=== PATIENT | male | born 1935 | race Hispanic/Latino ===

== ENCOUNTER 2019-12-16 15:49 | Inpatient (IN) | payer MEDICARE ==
[~2019-12-16] VITALS: Ht 170.2 cm; Wt 141.5 kg
[~2019-12-16 15:49] MED LIST: AMOX TR-K CLV1 EAC2; ASPIRIN EC81 MG PO; B-121000 MC2 PO; CIPROFLOXACIN250 MG PO; COLACE100 MG PO; FLINTSTONES CO1 EACH PO; FUROSEMIDE40 MG PO; LEVOFLOXACIN750 MG; LISINOPRIL20 MG PO; MAGNESIUM500 MG PO; METOLAZONE5 MG PO; POTASSIUM CHLO20 ME1 PO; TERAZOSIN HCL1 MG PO; WARFARIN SODIUM3 MG PO
[2019-12-16] MEDS ORDERED: PANTOPRAZOLE 40 MG 10ML VIAL IV STA (16:02)
[2019-12-16] MEDS ORDERED: SODIUM CHLORIDE 0.9% 1000ML 1,000 ML IV STA (16:02)
[2019-12-16 16:23] LABS: BASOPHILS # (AUTO) 0.1 (0.0-0.1); BASOPHILS % 0.9 % (0.0-1.0); EOSINOPHILS # (AUTO) 0.2 (0.0-0.4); EOSINOPHILS % 2.2 % (0.0-6.0); HEMATOCRIT 33.6 % (38.2-49.6); HEMOGLOBIN 11.1 g/dL (14.0-18.0); LYMPHOCYTES # (AUTO) 3.1 (1.0-3.2); LYMPHOCYTES % 34.1 % (18.0-39.1); MEAN CORPUSCULAR HEMOGLOBIN 33.3 pg (28-32); MEAN CORPUSCULAR VOLUME 100.9 fL (81-99); MONOCYTES # (AUTO) 0.9 (0.2-0.8); MONOCYTES % 10.3 % (4.4-11.3); NEUTROPHILS # (AUTO) 4.7 (2.1-6.9); NEUTROPHILS % 52.2 % (38.7-80.0); PLATELET COUNT 189 x10e3/uL (140-360); RED BLOOD COUNT 3.33 x10e6/uL (4.3-5.7); RED CELL DISTRIBUTION WIDTH 14.6 % (11.7-14.4)
[2019-12-16 16:33] LABS: INR 1.16; PROTHROMBIN TIME 15.6 seconds (11.9-14.5)
[2019-12-16 16:34] LABS: PARTIAL THROMBOPLASTIN TIME 31.9 seconds (23.8-35.5)
[2019-12-16 16:43] LABS: ALBUMIN 2.1 g/dL (3.5-5.0); ALBUMIN/GLOBULIN RATIO 0.6 (0.8-2.0); ANION GAP 12.3 mmol/L (8-16); CALCIUM 8.1 mg/dL (8.4-10.2); CREATININE, SERUM 1.22 mg/dL (0.72-1.25); POTASSIUM 3.3 mmol/L (3.5-5.1)
[2019-12-16 16:50] LABS: CREATINE KINASE MB 2.3 ng/mL (0-5.0)
--- NOTE | 2019-12-16 16:51 | Diagnostic Imaging Report ---
EXAM: CHEST SINGLE (PORTABLE) DATE: 12/16/2019 4:02 PM INDICATION: Colon cancer COMPARISON: 09/02/2019 FINDINGS: There are postsurgical changes from prior median sternotomy. The trachea is midline. There are patchy left greater than right bibasilar opacities which are stable from the prior examination and may reflect atelectasis/scarring. There is no evidence for large focal consolidation or pneumothorax. There is blunting of the costophrenic angles and trace effusions may be possible. No large volume pleural effusion is present. The cardiac silhouette remains prominent. Atherosclerotic calcifications are noted within the thoracic aorta. Mediastinal contours are unremarkable. No acute osseous abnormality is identified. IMPRESSION: Increased left greater than right-sided basilar opacities which may reflect atelectasis and/or trace effusion. Signed by: Dr. Kenton Lee MD on 12/16/2019 4:48 PM
--- NOTE | 2019-12-16 18:21 | NUR ---
Pt passed approx 200ml clotted blood from rectum.
--- NOTE | 2019-12-16 18:59 | NUR ---
patient pending arrival to the floor at shift change, COMMERCIAL TITLE EXAMINER DERRICK GAVE REPORT VIA TELEPHONE, PATIENT C/O GENERALIZED WEAKNESS, GI BLEED, CURRENT HBG 11.1, TYPE AND SCREEN COMPLETED, HX OF COLON CA, NO TX PLAN [id number]
--- NOTE | 2019-12-16 18:59 | NUR ---
Nursing report given to Ada PATEL on Med surg 1.
[2019-12-16 19:22] VITALS: BP 103/50
[2019-12-16 19:44] VITALS: BP 103/50
--- NOTE | 2019-12-16 20:05 | History and Physical ---
CHIEF COMPLAINT: An 84-year-old gentleman with a history of congestive heart failure, hypertension, and atrial fibrillation with current rectal bleeding. HISTORY OF PRESENT ILLNESS: This is Mr. Walter Adhikari with a history of congestive heart failure, history of CABG, history of CAD, was in usual state of health until the day of admission the patient passed two large clots and rectal bleeding. The patient has been seen by GI and also by Dr. Gore for his atrial fibrillation. Does take anticoagulation. The patient admitted to the hospital for acute GI bleed. PAST MEDICAL HISTORY: History of congestive heart failure, history of hypertension, history of hyperlipidemia, history of long-term anticoagulation, history of BPH, history of iron deficiency anemia. MEDICATIONS: He takes at home, aspirin 81 mg, docusate 100 mg, furosemide 40 mg twice a day, lisinopril 20 mg daily, magnesium 500 mg daily, metolazone 5 mg daily, multivitamins and iron daily, potassium chloride 20 mEq daily, terazosin 2 mg capsules once a day, and warfarin 3 mg daily. PAST SURGICAL HISTORY: History of 5-vessel coronary artery bypass in 2002. The patient had ear surgery, back surgery in 1977. Also, history of DVT with PICC line. ALLERGIES: INCLUDE CLINDAMYCIN AND LEVAQUIN. PHYSICAL EXAMINATION: VITAL SIGNS: Temperature of 98.2, pulse of 69, respirations of 20, blood pressure is 101/73, and pulse oximetry of 99%. GENERAL: The patient is obese, alert and oriented x3. HEENT: Normocephalic, atraumatic. The patient's thorax has a midline sternotomy. NECK: Large. HEART: S1, S2. Irregular. ABDOMEN: Relatively nontender, but protuberant. Has a big pannus. EXTREMITIES: 4+ edema. LABORATORY DATA: The patient's white count is 9.04, hemoglobin is 11.1, hematocrit of 33.6, and platelet count was 189. Chemistry shows sodium 141, potassium 3.3, BUN of 25, creatinine of 1.22, glucose 165, calcium is 8.1. Alkaline phosphatase is 215, AST of 54. TSH is 2.98. First set of troponin was negative. The patient is O positive. INR is 1.16, PTT 31.9. IMAGING STUDIES: Chest x-ray shows increased left greater than right bibasilar opacities, which may reflect atelectasis and/or trace effusion. ASSESSMENT: Mr. Walter Adhikari with history of. 1. Acute rectal bleed and long-term history of anticoagulation and consult with Dr. Ivan Velázquez has been done. 2. Atrial fibrillation with rapid ventricular response. Dr. Gore has been consulted and also warfarin has been on hold. 3. History of hypertension, history of CAD, and history of hyperlipidemia. Currently, the blood pressure is trending low. We will hold back on his antihypertensive medications. IV fluid has been started. The patient has been started on IV Protonix drip, pantoprazole IV x1 has been given. I will keep the patient n.p.o. at this time. Continue doing serial H and H. 4. We will continue to monitor the patient. Consult with both Cardiology and GI has been done. 5. Further recommendation per clinical course. We will follow the patient along with consultants. MD ANDREW Varma/CHLOÉ /[id number]
[2019-12-16 20:59] LABS: BASOPHILS % 0.4 % (0.0-1.0); EOSINOPHILS % 0.2 % (0.0-6.0); HEMATOCRIT 28.9 % (38.2-49.6); HEMOGLOBIN 9.3 g/dL (14.0-18.0); LYMPHOCYTES % 12.4 % (18.0-39.1); MEAN CORPUSCULAR HEMOGLOBIN 33.1 pg (28-32); MEAN CORPUSCULAR HGB CONC 32.2 g/dL (31-35); MEAN CORPUSCULAR VOLUME 102.8 fL (81-99); MONOCYTES # (AUTO) 0.5 (0.2-0.8); MONOCYTES % 6.1 % (4.4-11.3); NEUTROPHILS # (AUTO) 6.5 (2.1-6.9); NEUTROPHILS % 80.4 % (38.7-80.0); PLATELET COUNT 167 x10e3/uL (140-360); RED BLOOD COUNT 2.81 x10e6/uL (4.3-5.7); RED CELL DISTRIBUTION WIDTH 14.6 % (11.7-14.4)
[2019-12-16] MEDS ORDERED: PANTOPRAZOLE 40 MG 10ML VIAL IV SCH (21:00)
--- NOTE | 2019-12-16 21:05 | NUR ---
MD MCNEILL CALLED TO GET UPDATE ON PATIENT STATUS, HE WAS CALLED FOR CONSULT, INFORMED THAT PATIENT IS RESTING W/O DISTRESS, HYPOTENSIVE WITH SBP 102, NS@[id number], NEXT CBC ORDERED FOR 0000 REDRAW q6h, MD MCNEILL ORDERED TO CONTINUE MONITORING PATIENT CONDITION, NOTIFY HIM IF CHANGE IN CONDITION, UPGRADE PATIENT TO IMCU IF CONDITION WORSENS, START PATIENT ON CLEAR LIQUID DIET
[2019-12-16] MEDS ORDERED: AZELASTINE137 MCG/0. (21:13)
[2019-12-16] MEDS ORDERED: NYSTATIN100000 UNI TOP (21:15)
--- NOTE | 2019-12-16 21:57 | NUR ---
INFORMED MY GEOTHERMAL SYSTEM INSTALLER THAT PATIENT HGB DROPPED FROM 11.1 TO 9, NEXT CBC DUE AT 2AM, PT HAD ONE EPISODE OF RECTAL BLEEDING, LARGE AMOUNT OF DARK RED BLOOD WITH MULTIPLE BLOOD CLOTS SEEN NOTED, LOOKS LIKE DARK GRAPE JELLY, CARE GIVEN, DENIES PAIN OR DISCOMFORT AT THIS TIME, PATIENT PLACED ON TELEMETRY WITH CONTINOUS PULSE OXIMETRY, CLINICAL RN LIAISON NOTIFIED OF POSSIBLE PENDING UPGRADE WITH RESULTS OF NEXT LABS AT 0200
--- NOTE | 2019-12-16 23:00 | NUR ---
PATIENT TRANSFERRED TO ICU VIA BED, REPORT GIVEN IN PERSON TO BALL POINT SPLITTER DHARMESH WHEN SHE CAME ON FLOOR TO COMPLETE ASSESSMENT ON PATIENT, UPDATED ON MD [facility] PLAN OF CARE, PATIENT AWAKE ALERT, DURING TRANSFER, C/O ABDOMINAL PAIN THAT IS RELIEVED WITH BOWEL MOVEMENT, PATIENT GIVEN CARE PRIOR TO TRANSFER, PT PASSED APPROX 300ML CLOTTED BLOOD FROM RECTUM, CONSENT FOR BLOOD PRODUCT IN CHART
[2019-12-16 23:15] VITALS: BP 106/51
--- NOTE | 2019-12-16 23:15 | NUR ---
Report received from Ada Hi RN. Pt received to ICU room 196. Pt is AAOx3 on room air with no signs of distress noted. Pt reports no pain or discomfort at this time. Bed in lowest and locked position, call light in reach of the pt. Pt instructed to call for assistance and to notify staff when he needs to have a BM or urination assistance.
[2019-12-16] MEDS ORDERED: SODIUM CHLORIDE 0.9% 1000ML 1,000 ML ONE (23:41)
[2019-12-17] VITALS (11 sets, daily range): BP systolic 92–119; BP diastolic 47–92
[2019-12-17 05:34] LABS: BASOPHILS # (AUTO) 0.1 (0.0-0.1); BASOPHILS % 0.4 % (0.0-1.0); EOSINOPHILS % 0.3 % (0.0-6.0); HEMATOCRIT 23.2 % (38.2-49.6); HEMOGLOBIN 7.7 g/dL (14.0-18.0); LYMPHOCYTES # (AUTO) 1.8 (1.0-3.2); LYMPHOCYTES % 15.2 % (18.0-39.1); MEAN CORPUSCULAR HEMOGLOBIN 34.1 pg (28-32); MEAN CORPUSCULAR HGB CONC 33.2 g/dL (31-35); MEAN CORPUSCULAR VOLUME 102.7 fL (81-99); MONOCYTES # (AUTO) 0.9 (0.2-0.8); MONOCYTES % 7.2 % (4.4-11.3); NEUTROPHILS # (AUTO) 9.1 (2.1-6.9); NEUTROPHILS % 76.3 % (38.7-80.0); PLATELET COUNT 170 x10e3/uL (140-360); RED BLOOD COUNT 2.26 x10e6/uL (4.3-5.7); RED CELL DISTRIBUTION WIDTH 14.7 % (11.7-14.4)
[2019-12-17 05:47] LABS: ALBUMIN 1.6 g/dL (3.5-5.0); ALBUMIN/GLOBULIN RATIO 0.6 (0.8-2.0); ANION GAP 12.9 mmol/L (8-16); CALCIUM 7.5 mg/dL (8.4-10.2); CREATININE, SERUM 1.66 mg/dL (0.72-1.25); POTASSIUM 3.9 mmol/L (3.5-5.1)
--- NOTE | 2019-12-17 06:52 | NUR ---
Pt requesting pain medication for chronic back and hip pain. Dr. Nieves paged at this time. Currently awaiting his return call.
--- NOTE | 2019-12-17 07:51 | Progress Note ---
DATE: Progress note. SUBJECTIVE: An 84-year-old gentleman who was admitted to the hospital for a GI bleed. Still continues to have melena and melenic stool and also bright rectal bleed per rectum. The patient is weak, continues to have some back pain. Hemoglobin has dropped to 7.2. The patient has no chest pain. No shortness of breath. Still in atrial fibrillation with no RVR. OBJECTIVE: VITAL SIGNS: The patient's blood pressure is stable. CVS: S1 and S2. Regular. ABDOMEN: Tender in the lower quadrant and also in the right upper quadrant. EXTREMITIES: No clubbing, no cyanosis, 3+ edema. ASSESSMENT: The patient with: 1. Acute GI bleed. 2. Low back pain. 3. History of hypertension. 4. Atrial fibrillation. 5. Hyperlipidemia. PLAN: Has been consulted to see, GI has been consulted. The patient will be put on IV Protonix drip because of melenic stools. Echocardiogram has been ordered. Transfusion for 2 units of PRBC has been ordered. Possible need of EGD and colonoscopy will be discussed with GI. Monitor hematocrit and continue to keep in ICU. Fluid resuscitation and we will recommend also an echocardiogram. Further recommendations per clinical course. We will continue to monitor the patient and then also on [employer] payroll consultant's reports. MD ANDREW Varma/MODL /[id number]
[2019-12-17 09:09] LABS: HEMATOCRIT 20.7 % (38.2-49.6); HEMOGLOBIN 6.7 g/dL (14.0-18.0)
[2019-12-17] MEDS ORDERED: SODIUM CHLORIDE 0.9% 250ML 250 ML ONE (09:19)
[2019-12-17] MEDS: PANTOPRAZOLE INJ 40 MG in SODIUM CHLORIDE 0.9% 50ML 50 ML IV SCH ×4 (10:36→23:40)
--- NOTE | 2019-12-17 10:51 | NUR ---
GASTROENTEROLOGY CONSULTATION REASON FOR CONSULT: rectal bleeding CHIEF COMPLAINT: Patient is a 84-year-old gentleman with a history of congestive heart failure, hypertension, and atrial fibrillation with current rectal bleeding who presented with passing of two large clots and rectal bleeding. Patient states he has been seen by Dr. Velázquez in the past, but did not have an EGD or colonoscopy in the past. He has taken many anticoagulants in the past, however currently is on baby Aspirin.He denies any abd pain, hematemesis, nausea/vomiting, or dysphagia. He denies any cp or sob. Patient is currently bleeding and has hgb of 6.7. He denies any history of gastric ulcers or hemorrhoids. ROS: GENERAL: denies fevers, chills HEENT: denies ear pain, discharge HEART: denies any cp or palpitations LUNGS: edema, denies any sob GI: nontender, denies any abd pain, n/v EXTREMITIES: 2+ edema. NEURO: denies any seizures or headaches PAST MEDICAL HISTORY: History of congestive heart failure, history of hypertension, history of hyperlipidemia, history of long-term anticoagulation, history of BPH, history of iron deficiency anemia. MEDICATIONS: aspirin 81 mg, docusate 100 mg, furosemide 40 mg twice a day, lisinopril 20 mg daily, magnesium 500 mg daily, metolazone 5 mg daily, multivitamins and iron daily, potassium chloride 20 mEq daily, terazosin 2 mg capsules once a day, and warfarin 3 mg daily. PAST SURGICAL HISTORY: History of 5-vessel coronary artery bypass in 2002. ear surgery, back surgery in 1977. ALLERGIES: INCLUDE CLINDAMYCIN AND LEVAQUIN. PHYSICAL EXAMINATION: VITAL SIGNS: See chart GENERAL: The patient is obese, alert and oriented x3. HEENT: Normocephalic, atraumatic. HEART: S1, S2. Irregular. ABDOMEN: nontender EXTREMITIES: 2+ edema. LABORATORY DATA: Chemistry shows sodium 141, potassium 3.3, BUN of 25, creatinine of 1.22, glucose 165, calcium is 8.1. Alkaline phosphatase is 215, AST of 54. TSH is 2.98. INR is 1.16, PTT 31.9. vitals/labs reviewed ASSESSMENT and PLAN: 1. Acute melena and long-term history of anticoagulation 2. Atrial fibrillation with rapid ventricular response. 3. Severe anemia Plan - Plan for an EGD tomorrow w/Dr. Penn. NPO after midnight. Clear liquid diet. Discussed with patient. - Continue PPI - Continue to monitor H/H and GI bleeding - Hold anticoagulants - If EGD negative, patient may need colonoscopy Above plans d/w Dr. Penn Thank you for the consult.
--- NOTE | 2019-12-17 11:08 | Diagnostic Imaging Report ---
EXAM: US LIVER DATE: 12/17/2019 12:00 AM INDICATION: Elevated LFTs COMPARISON: None FINDINGS: Please note that the examination is limited secondary to patient's body habitus and prominent midline bowel gas. The pancreas is not visualized secondary to prominent midline bowel gas. The liver is normal in size measuring 15.3 cm in length. The hepatic parenchyma appears heterogeneous. No focal hepatic abnormality is identified. The main portal vein is patent with antegrade flow and diameter of 0.7 cm. There is mild wall thickening of the gallbladder which is likely related to its contracted state. There is no evidence for shadowing stones or pericholecystic fluid. There is no intra or extra hepatic biliary ductal dilatation. The common bile duct measures 5 mm sonographic Menendez's sign is negative. The right kidney is normal in size measuring 10.2 cm is in length with normal cortical thickness/echogenicity. There is no evidence for solid renal mass, hydronephrosis, or shadowing calculi within the right kidney. The IVC and aorta could not be visualized secondary to prominent midline bowel gas. There is no ascites visualized. IMPRESSION: Heterogeneous appearance of the hepatic parenchyma which is nonspecific but can be seen in the setting of hepatic dysfunction. No focal hepatic abnormality identified. Otherwise, limited right upper quadrant examination secondary to prominent midline bowel gas and patient's body habitus demonstrates no significant abnormalities. Signed by: Dr. Kenton Lee MD on 12/17/2019 11:05 AM
--- NOTE | 2019-12-17 11:32 | Consultation ---
DATE OF CONSULTATION: 12/17/2019 Cardiology Consultation Thank you so much for asking me to see this nice man again in consultation. HISTORY OF PRESENT ILLNESS: Mr. Adhikari is an 84-year-old man known to me for many years, who presented to the emergency room on the with a complaint of dark red stools at home. When asked if he has any pain, he reports he "hurts all over." He has previously used anticoagulants at one time or another warfarin or Xarelto. We stopped these when he was hospitalized in August with GI bleeding. He had made an appointment to see Dr. Velázquez in the office, but more recently appointment was canceled. PAST MEDICAL HISTORY: Significant for coronary artery disease with bypass graft surgery in 2002 with 5 grafts. He had EP study for ventricular tachycardia in April 2007. He had previous deep venous thrombosis associated with a PICC line. History of sleep apnea, anemia, hypertension, arthritis, benign prostatic hypertrophy. Diagnosis of atrial fibrillation, apparently was new in August of 2019. RECENT HOME MEDICATIONS: Included: 1. Aspirin 81 daily. 2. Janine. 3. Potassium chloride 20 mEq one in the morning and two in the evening. 4. Magnesium tablet. 5. Metolazone 5 mg once a day. 6. Terazosin 5 mg once a day. 7. Azelastine nasal spray. 8. Furosemide 40 mg twice a day. PAST SURGICAL HISTORY: Includes back surgery in 1977, ear surgery in 1974, and coronary bypass in 2002. FAMILY HISTORY: Father of myocardial infarction at age 84. PHYSICAL EXAMINATION: GENERAL: At this time shows a morbidly obese man, who is awake. VITAL SIGNS: Blood pressure is 105/92, pulse is 90 and irregularly irregular. HEAD, EYES, EARS, NOSE, AND THROAT: Relatively unremarkable. NECK: Thick thorax. There is healed midline sternotomy. HEART: Sounds S1, S2 are equal, but irregularly irregular. There is a faint 1/6 systolic murmur. LUNGS: Clear. ABDOMEN: Nontender. Normal bowel sounds. EXTREMITIES: Have 2+ bilateral edema with scarring from previous cellulitis. LABORATORY STUDIES: Show BUN 31 and creatinine 1.6. His presenting hemoglobin was 11.1, but this morning is 6.7, and he is currently being transfused with blood. Echocardiogram performed in August 2019 showed an ejection fraction of 50% to 55%, mild mitral regurgitation. ASSESSMENT: 1. Lower gastrointestinal bleeding, source not clear. 2. Chronic atrial fibrillation. 3. Coronary artery disease, clinically stable. 4. Clinical congestive heart failure with normal ejection fraction and mild mitral regurgitation. PLAN: We will withhold his aspirin and await endoscopies to pinpoint source of bleeding. Cannot use any anticoagulants or aspirin either at this time. Thank you for asking me to see him in consultation. MD ROBERTO Benjamin/CHLOÉ /[id number]
[2019-12-17 13:04] LABS: BASOPHILS # (AUTO) 0.1 (0.0-0.1); BASOPHILS % 0.3 % (0.0-1.0); EOSINOPHILS % 0.1 % (0.0-6.0); HEMATOCRIT 21.5 % (38.2-49.6); HEMOGLOBIN 7.2 g/dL (14.0-18.0); LYMPHOCYTES # (AUTO) 1.7 (1.0-3.2); LYMPHOCYTES % 11.7 % (18.0-39.1); MEAN CORPUSCULAR HEMOGLOBIN 33.5 pg (28-32); MEAN CORPUSCULAR HGB CONC 33.5 g/dL (31-35); MONOCYTES # (AUTO) 0.9 (0.2-0.8); MONOCYTES % 6.1 % (4.4-11.3); NEUTROPHILS # (AUTO) 11.8 (2.1-6.9); NEUTROPHILS % 81.2 % (38.7-80.0); PLATELET COUNT 161 x10e3/uL (140-360); RED BLOOD COUNT 2.15 x10e6/uL (4.3-5.7); RED CELL DISTRIBUTION WIDTH 16.3 % (11.7-14.4)
[2019-12-17] MEDS ORDERED: PEG (High)/E-LYTE SOLN 4,000 ML BTL PO NR (18:15)
[2019-12-17 21:00] LABS: BASOPHILS # (AUTO) 0.1 (0.0-0.1); BASOPHILS % 0.6 % (0.0-1.0); EOSINOPHILS # (AUTO) 0.2 (0.0-0.4); EOSINOPHILS % 0.9 % (0.0-6.0); HEMOGLOBIN 8.4 g/dL (14.0-18.0); LYMPHOCYTES % 16.8 % (18.0-39.1); MEAN CORPUSCULAR HEMOGLOBIN 32.9 pg (28-32); MEAN CORPUSCULAR HGB CONC 33.6 g/dL (31-35); MONOCYTES # (AUTO) 1.7 (0.2-0.8); MONOCYTES % 9.5 % (4.4-11.3); NEUTROPHILS # (AUTO) 12.8 (2.1-6.9); NEUTROPHILS % 71.3 % (38.7-80.0); PLATELET COUNT 174 x10e3/uL (140-360); RED BLOOD COUNT 2.55 x10e6/uL (4.3-5.7); RED CELL DISTRIBUTION WIDTH 17.5 % (11.7-14.4)
[2019-12-17] MEDS ORDERED: PANTOPRAZOL 40MG/SOD CHL 0.9% 50 ML IV ONE (23:44)
[2019-12-18] VITALS (9 sets, daily range): BP systolic 112–159; BP diastolic 47–99
[2019-12-18 01:43] LABS: BASOPHILS # (AUTO) 0.1 (0.0-0.1); BASOPHILS % 0.6 % (0.0-1.0); EOSINOPHILS # (AUTO) 0.3 (0.0-0.4); EOSINOPHILS % 1.7 % (0.0-6.0); HEMATOCRIT 23.1 % (38.2-49.6); HEMOGLOBIN 7.7 g/dL (14.0-18.0); LYMPHOCYTES # (AUTO) 2.6 (1.0-3.2); LYMPHOCYTES % 15.9 % (18.0-39.1); MEAN CORPUSCULAR HEMOGLOBIN 32.2 pg (28-32); MEAN CORPUSCULAR HGB CONC 33.3 g/dL (31-35); MEAN CORPUSCULAR VOLUME 96.7 fL (81-99); MONOCYTES # (AUTO) 1.5 (0.2-0.8); MONOCYTES % 9.3 % (4.4-11.3); NEUTROPHILS # (AUTO) 11.7 (2.1-6.9); NEUTROPHILS % 71.6 % (38.7-80.0); PLATELET COUNT 161 x10e3/uL (140-360); RED BLOOD COUNT 2.39 x10e6/uL (4.3-5.7); RED CELL DISTRIBUTION WIDTH 17.7 % (11.7-14.4)
[2019-12-18 05:16] LABS: BASOPHILS # (AUTO) 0.1 (0.0-0.1); BASOPHILS % 0.6 % (0.0-1.0); EOSINOPHILS # (AUTO) 0.3 (0.0-0.4); EOSINOPHILS % 1.8 % (0.0-6.0); HEMATOCRIT 22.7 % (38.2-49.6); HEMOGLOBIN 7.6 g/dL (14.0-18.0); LYMPHOCYTES % 17.7 % (18.0-39.1); MEAN CORPUSCULAR HEMOGLOBIN 32.3 pg (28-32); MEAN CORPUSCULAR HGB CONC 33.5 g/dL (31-35); MEAN CORPUSCULAR VOLUME 96.6 fL (81-99); MONOCYTES # (AUTO) 1.5 (0.2-0.8); NEUTROPHILS % 69.8 % (38.7-80.0); PLATELET COUNT 172 x10e3/uL (140-360); RED BLOOD COUNT 2.35 x10e6/uL (4.3-5.7); RED CELL DISTRIBUTION WIDTH 17.6 % (11.7-14.4)
[2019-12-18] MEDS ORDERED: PANTOPRAZOL 40MG/SOD CHL 0.9% 50 ML IV ONE (05:16)
[2019-12-18] MEDS: PANTOPRAZOLE INJ 40 MG in SODIUM CHLORIDE 0.9% 50ML 50 ML IV SCH ×5 (05:17→21:38)
--- NOTE | 2019-12-18 08:01 | Progress Note ---
DATE: SUBJECTIVE: The patient comes in with atrial fibrillation, CHF and also lower GI bleed. The patient is scheduled for colonoscopy and endoscopy today by Dr. Penn. Currently, sleepy, arousable. The patient's medications include hydromorphone and pantoprazole drip. No bowel movement was yesterday. No melenic stools or any rectal bleeding as per nursing last night. Medicines are on hold at this time. OBJECTIVE: VITAL SIGNS: Temperature is 98.3, pulse 68, respirations of 14, blood pressure is 116/49, pulse oximeter 100% on room air. HEENT: Normocephalic and atraumatic. GENERAL: The patient is morbidly obese. CVS: S1 and S2 regular, not tachy. ABDOMEN: Tender in the left lower quadrant and also in the epigastric area. EXTREMITIES: No clubbing. No cyanosis. Positive for 2+ edema. LABORATORY VALUES: The patient's white count is 17,000, hemoglobin is 7.6, hematocrit of 22.7, platelet count is 172. Chemistry; sodium 143, potassium 3.9, BUN of 31, creatinine of 1.66. Troponins have been negative. BNP was 117. ASSESSMENT: Mr. Walter Adhikari with, 1. Gastrointestinal bleed, source not clear. Colonoscopy scheduled for today. 2. Chronic atrial fibrillation. We will keep him off his anticoagulation in lieu of his bleed. 3. Coronary artery disease, stable at this time. 4. Congestive heart failure, diastolic and mitral regurgitation. PLAN: Schedule for colonoscopy today with Dr. Penn. We will continue with this. Leukocytosis, we will go ahead and start him on some Zosyn in lieu of his laboratory findings of elevated white count. Further recommendation per clinical course. MD ANDREW Varma/MODL /[id number]
[2019-12-18] MEDS: PIPER-TAZ 3.375 GM 50 ML IV SCH ×3 (08:56→20:39)
--- NOTE | 2019-12-18 09:07 | NUR ---
patient refusing to drink prep for procedure, states "if I drink it I drink it, if I dont I dont" notified Dr. Penn, at this time procedure may have to be cancelled, patient and family member Henrietta notified, will reattempt to get patient to to drink prep per Md order.
--- NOTE | 2019-12-18 12:05 | NUR ---
Call placed to patients daughter Henrietta and informed that patient refuses to cooperate and keeps attempting to sit on side of bed unassisted, informed daughter that patient is high risk for falls and that can not be done at this time, verbalized to patient it is unsafe by patient continues to sit on side of the bed and is uncooperative with the requests that multiple staff members have requested. will continue to monitor.
[2019-12-18 12:31] LABS: BASOPHILS # (AUTO) 0.2 (0.0-0.1); BASOPHILS % 0.7 % (0.0-1.0); EOSINOPHILS # (AUTO) 0.3 (0.0-0.4); EOSINOPHILS % 1.2 % (0.0-6.0); HEMATOCRIT 24.7 % (38.2-49.6); HEMOGLOBIN 8.5 g/dL (14.0-18.0); LYMPHOCYTES # (AUTO) 3.8 (1.0-3.2); LYMPHOCYTES % 17.7 % (18.0-39.1); MEAN CORPUSCULAR HEMOGLOBIN 33.3 pg (28-32); MEAN CORPUSCULAR HGB CONC 34.4 g/dL (31-35); MEAN CORPUSCULAR VOLUME 96.9 fL (81-99); MONOCYTES # (AUTO) 1.8 (0.2-0.8); MONOCYTES % 8.3 % (4.4-11.3); NEUTROPHILS # (AUTO) 15.2 (2.1-6.9); NEUTROPHILS % 70.1 % (38.7-80.0); PLATELET COUNT 220 x10e3/uL (140-360); RED BLOOD COUNT 2.55 x10e6/uL (4.3-5.7); RED CELL DISTRIBUTION WIDTH 17.7 % (11.7-14.4)
[2019-12-18 13:39] LABS: EOSINOPHILS % (MANUAL) 1 % (0-7); LYMPHOCYTES % (MANUAL) 16 % (19-48); MONOCYTES % (MANUAL) 7 % (3.4-9.0); MYELOCYTES % (MANUAL) 1 % (0-0); NEUTROPHILS % (MANUAL) 75 % (40-74)
[2019-12-18 13:40] LABS: ANISOCYTOSIS SLIGHT; PLATELET ESTIMATE ADEQUATE; PLATELET MORPHOLOGY COMMENT NORMAL; POLYCHROMASIA FEW; RBC MORPHOLOGY COMMENT NORMAL
[2019-12-18] MEDS ORDERED: ZIPRASIDONE 20 MG VIAL IM PRN (14:00)
[2019-12-18] MEDS: ONDANSETRON HCL INJ 2MG/ML 2ML 2 MG/ML VIAL IV PRN (14:52)
[2019-12-18] MEDS: HYDROMORPHONE 1MG/1ML INJ IV PRN (14:52)
[2019-12-18] MEDS: SODIUM CHLORIDE 0.9% 1000ML 1,000 ML IV SCH (15:13)
[2019-12-18 16:59] LABS: BILIRUBIN,URINE 1+ (NEGATIVE); CLARITY,URINE SL CLOUDY (CLEAR); COLOR,URINE STRAW (YELLOW); KETONES,URINE NEGATIVE (NEGATIVE); LEUKOCYTE ESTERASE ,URINE NEGATIVE (NEGATIVE); NITRITE,URINE NEGATIVE (NEGATIVE); PROTEIN,URINE DIPSTICK NEGATIVE (NEGATIVE); URINE UROBILINOGEN 0.2 mg/dL (0.2 - 1)
[2019-12-18 17:13] LABS: AMORPHOUS SEDIMENT,URINE MODERATE (FEW); BACTERIA,URINE MANY /HPF; EPITHELIAL CELLS,URINE FEW /LPF
--- NOTE | 2019-12-18 17:29 | NUR ---
Right nare NGT inserted, patient tolerated well
[2019-12-18 19:21] LABS: BASOPHILS # (AUTO) 0.1 (0.0-0.1); BASOPHILS % 0.4 % (0.0-1.0); EOSINOPHILS # (AUTO) 0.1 (0.0-0.4); EOSINOPHILS % 0.2 % (0.0-6.0); HEMATOCRIT 26.4 % (38.2-49.6); HEMOGLOBIN 8.7 g/dL (14.0-18.0); LYMPHOCYTES # (AUTO) 2.2 (1.0-3.2); LYMPHOCYTES % 10.3 % (18.0-39.1); MEAN CORPUSCULAR HEMOGLOBIN 32.7 pg (28-32); MEAN CORPUSCULAR VOLUME 99.2 fL (81-99); MONOCYTES # (AUTO) 1.4 (0.2-0.8); MONOCYTES % 6.7 % (4.4-11.3); NEUTROPHILS # (AUTO) 17.1 (2.1-6.9); PLATELET COUNT 177 x10e3/uL (140-360); RED BLOOD COUNT 2.66 x10e6/uL (4.3-5.7); RED CELL DISTRIBUTION WIDTH 17.8 % (11.7-14.4)
[2019-12-18] MEDS: ZIPRASIDONE 20 MG VIAL IM PRN (22:15)
[2019-12-19] VITALS (14 sets, daily range): BP systolic 120–163; BP diastolic 48–72
[2019-12-19] MEDS: SODIUM CHLORIDE 0.9% 1000ML 1,000 ML IV SCH ×3 (00:22→19:30)
[2019-12-19] MEDS: PIPER-TAZ 3.375 GM 50 ML IV SCH ×4 (01:46→20:00)
[2019-12-19] MEDS: PANTOPRAZOLE INJ 40 MG in SODIUM CHLORIDE 0.9% 50ML 50 ML IV SCH ×4 (04:17→19:30)
[2019-12-19 05:09] LABS: BASOPHILS # (AUTO) 0.1 (0.0-0.1); BASOPHILS % 0.6 % (0.0-1.0); EOSINOPHILS # (AUTO) 0.2 (0.0-0.4); EOSINOPHILS % 1.1 % (0.0-6.0); HEMATOCRIT 22.9 % (38.2-49.6); HEMOGLOBIN 7.6 g/dL (14.0-18.0); LYMPHOCYTES # (AUTO) 2.4 (1.0-3.2); LYMPHOCYTES % 14.2 % (18.0-39.1); MEAN CORPUSCULAR HEMOGLOBIN 32.9 pg (28-32); MEAN CORPUSCULAR HGB CONC 33.2 g/dL (31-35); MEAN CORPUSCULAR VOLUME 99.1 fL (81-99); MONOCYTES # (AUTO) 1.6 (0.2-0.8); MONOCYTES % 9.8 % (4.4-11.3); NEUTROPHILS # (AUTO) 12.2 (2.1-6.9); NEUTROPHILS % 73.2 % (38.7-80.0); PLATELET COUNT 172 x10e3/uL (140-360); RED BLOOD COUNT 2.31 x10e6/uL (4.3-5.7); RED CELL DISTRIBUTION WIDTH 17.7 % (11.7-14.4)
[2019-12-19] MEDS: HYDROMORPHONE 1MG/1ML INJ IV PRN ×2 (05:13→15:19)
[2019-12-19 05:34] LABS: ANION GAP 17.6 mmol/L (8-16); CALCIUM 7.3 mg/dL (8.4-10.2); POTASSIUM 3.6 mmol/L (3.5-5.1)
[2019-12-19 06:13] LABS: CREATININE, SERUM 2.93 mg/dL (0.72-1.25)
[2019-12-19] MEDS ORDERED: PROPOFOL IV EMULSION 10 MG/ML 50 ML VIAL ONE (13:56)
[2019-12-19 15:33] LABS: HEMATOCRIT 22.7 % (38.2-49.6); HEMOGLOBIN 7.7 g/dL (14.0-18.0)
--- NOTE | 2019-12-19 15:48 | NUR ---
Informed Dr. Ashford regarding elevated Creatinine and patient with no change in mental status, orders received for STAT ABG, and consult Dr. Campbell, will continue to monitor
--- NOTE | 2019-12-19 18:31 | Diagnostic Imaging Report ---
EXAM: Renal Ultrasound INDICATION: ARF COMPARISON: None TECHNIQUE: Transverse and longitudinal images of the kidneys and bladder were obtained. FINDINGS: Right Kidney: Size: 12.3 cm Echogenicity: Normal Parenchymal thickness: Normal Collecting system: No hydronephrosis Stones: None Cyst/Mass: None Left Kidney: Size: 11.9 cm Echogenicity: Normal Parenchymal thickness: Normal Collecting system: No hydronephrosis Stones: None Cyst/Mass: None Bladder: Normal IMPRESSION: Normal renal ultrasound exam. Signed by: Nikunj Lange MD on 12/19/2019 6:28 PM
--- NOTE | 2019-12-19 19:00 | NUR ---
Patient received awake, alert, lying quietly in bed. no signs of pain/discomfort noted. bilateral soft wrist restrains remain for patient safety. respirations even and unlabored. 02/2l/nc in use. ivf/iv protonix infusing without difficulty. Paiz draining clear yellow urine to bsd. pm assessment complete. close monitoring continues.
--- NOTE | 2019-12-19 20:48 | NUR ---
ABG results called to Dr. Rodas at this time. No new orders noted.
[2019-12-20] VITALS (9 sets, daily range): BP systolic 107–145; BP diastolic 40–59
--- NOTE | 2019-12-20 | NUR ---
patient awake, alert, lying quietly in bed. Patient states, " I need these things off my arms so i can move. " wrist restraints removed for short while. patient turned and repositioned for comfort. patient pulled up in bed. patient denies pain at this time. vss.
[2019-12-20] MEDS: PANTOPRAZOLE INJ 40 MG in SODIUM CHLORIDE 0.9% 50ML 50 ML IV SCH ×5 (00:30→20:16)
[2019-12-20] MEDS: PIPER-TAZ 3.375 GM 50 ML IV SCH ×4 (01:11→19:56)
[2019-12-20] MEDS: ZIPRASIDONE 20 MG VIAL IM PRN (01:47)
--- NOTE | 2019-12-20 01:47 | NUR ---
Geodon 5mg im given for agitation at this time.
--- NOTE | 2019-12-20 05:16 | NUR ---
patient appears to be resting quietly. no c/o pain noted at this time. ivf continue to infuse without difficulty.
[2019-12-20 07:39] LABS: BASOPHILS # (AUTO) 0.1 (0.0-0.1); BASOPHILS % 0.9 % (0.0-1.0); EOSINOPHILS # (AUTO) 0.2 (0.0-0.4); EOSINOPHILS % 1.7 % (0.0-6.0); HEMATOCRIT 22.3 % (38.2-49.6); HEMOGLOBIN 7.3 g/dL (14.0-18.0); LYMPHOCYTES # (AUTO) 1.6 (1.0-3.2); LYMPHOCYTES % 13.1 % (18.0-39.1); MEAN CORPUSCULAR HEMOGLOBIN 33.3 pg (28-32); MEAN CORPUSCULAR HGB CONC 32.7 g/dL (31-35); MEAN CORPUSCULAR VOLUME 101.8 fL (81-99); MONOCYTES # (AUTO) 1.2 (0.2-0.8); MONOCYTES % 9.8 % (4.4-11.3); NEUTROPHILS % 73.8 % (38.7-80.0); PLATELET COUNT 208 x10e3/uL (140-360); RED BLOOD COUNT 2.19 x10e6/uL (4.3-5.7); RED CELL DISTRIBUTION WIDTH 18.3 % (11.7-14.4)
[2019-12-20 07:59] LABS: ALBUMIN 1.9 g/dL (3.5-5.0); ALBUMIN/GLOBULIN RATIO 0.7 (0.8-2.0); ANION GAP 13.1 mmol/L (8-16); CALCIUM 7.3 mg/dL (8.4-10.2); CREATININE, SERUM 2.55 mg/dL (0.72-1.25); MAGNESIUM 1.9 MG/DL (1.3-2.1); POTASSIUM 3.1 mmol/L (3.5-5.1)
[2019-12-20] MEDS ORDERED: SODIUM CHLORIDE 0.9% 250ML 250 ML ONE (15:11)
[2019-12-20] MEDS ORDERED: PANTOPRAZOLE 40 MG 10ML VIAL ONE (19:44)
--- NOTE | 2019-12-20 21:20 | NUR ---
[address] ARROYO REGARDING PATIENTS HEART RATE AFIB 50'S AND INTERMITTENTLY IN THE 40'S, ORDERS REC'D AND ENTERED.
[2019-12-20] MEDS: ATROPINE SULFATE INJ 0.4 MG/ML VIAL IV PRN ×2 (21:39→23:22)
[2019-12-20] MEDS ORDERED: ATROPINE SULFATE 0.1 MG/ML 10ML SYR ONE (21:41)
[2019-12-21] VITALS: BP 122/66
--- NOTE | 2019-12-21 | NUR ---
2139 PATIENT SITTING UP IN BED, AWAKE AND ALERT, HEART RATE 39-44, A FIB, NO DISTRESS NOTED, PATIENT DENIES CHEST PAIN, PRN ATROPINE ADMINISTERED PER MD ORDER 2321 HEART RATE 43-46, ATROPINE ADMINISTERED PER MD ORDER, PATIENT REMAINS AWAKE AND ALERT WITHOUT DISTRESS.
[2019-12-21] MEDS ORDERED: ATROPINE SULFATE 0.1 MG/ML 10ML SYR ONE (01:14)
[2019-12-21] MEDS: PANTOPRAZOLE INJ 40 MG in SODIUM CHLORIDE 0.9% 50ML 50 ML IV SCH ×5 (01:36→21:30)
[2019-12-21] MEDS: PIPER-TAZ 3.375 GM 50 ML IV SCH ×4 (01:37→19:51)
[2019-12-21 04:00] VITALS: BP 107/50
[2019-12-21 06:19] LABS: ANION GAP 9.9 mmol/L (8-16); CALCIUM 7.2 mg/dL (8.4-10.2); CREATININE, SERUM 1.89 mg/dL (0.72-1.25)
--- NOTE | 2019-12-21 06:50 | NUR ---
RECEIVED BEDSIDE REPORT PT REPOSITIONED TO BE MORE COMFORTABLE. NO PAIN JUST WANTS TO BE MORE COMFORTABLE
[2019-12-21 07:05] LABS: POTASSIUM 2.9 mmol/L (3.5-5.1)
[2019-12-21] MEDS ORDERED: POTASSIUM CHLORIDE 20MEQ/100ML 200 ML IV ONE (07:30)
--- NOTE | 2019-12-21 07:34 | Progress Note ---
DATE: SUBJECTIVE: The patient is an 84-year-old gentleman, who comes in after a rectal bleeding, transfusions were done. The patient also had a colonoscopy, which showed a colonic mass. Discussed with Dr. Rodriguez who did the biopsy of the mass too. Currently, the patient at this point of time at least does not want to do any kind of intervention. The patient had a rectosigmoid mass, highly suspicious of cancer and this was conveyed to the patient. The patient at this time does not want to do, has a DNR and also living well. I did discuss the options and the patient will discuss with the family. At this time, the patient had a bradycardic event. Atropine was given. The patient is not currently on any antihypertensives and is maintaining, has atrial fibrillation and is not on any anticoagulation. Risks and benefits of not being on anticoagulation also discussed. OBJECTIVE: VITAL SIGNS: Temperature 98.0, pulse of 68, respirations 17, blood pressure is 107/50, pulse oximetry of 97%. Morbidly obese. HEENT: Normocephalic and atraumatic. The patient has some labored monitored breathing. CVS: S1 and S2. Regular. LUNGS: Decreased air entry. Positive for crackles at the lung bases. ABDOMEN: Tender in the left lower quadrant. EXTREMITIES: No clubbing. Positive for lymphedema. Positive for vascular changes of edema and also positive for back pain and tenderness. LABORATORY VALUES: Today white count is [place]. [place] [address] trending down, hemoglobin is 7.3, hematocrit of 22.3. Slight trend down. The neutrophil count is normalized. Chemistries are still pending today. Yesterday's potassium was 3.1, BUN of 56, creatinine 2.55. IMAGING STUDIES: Renal ultrasound done shows no normal renal ultrasonic exam. ASSESSMENT: Mr. Walter Adhikari with; 1. Acute gastrointestinal bleed possibly from the colonic mass rectosigmoid status post colonoscopy. Plan and disposition at this time, the patient is leaning towards no intervention. 2. Chronic atrial fibrillation, off the anticoagulation. Did discuss with the patient risks and benefits of not being on anticoagulation. 3. Coronary artery disease. No chest pains and heart rate is bradycardic. 4. Congestive heart failure. PLAN: Plan on restarting his Lasix depending on his blood pressures. Continue to monitor the patient. The patient is on Zosyn at this time for his leukocytosis. Further recommendation per clinical course. His labs, BNP was 117 and his troponins were negative. Disposition again depending on the patient's decisions. We will discuss with him again today and the family tomorrow. MD ANDREW Varma/MODNury /[id number]
[2019-12-21 08:00] VITALS: BP 127/49
--- NOTE | 2019-12-21 08:00 | NUR ---
ASSESSMENT COMPLETED. MONITORING HR.
--- NOTE | 2019-12-21 09:15 | NUR ---
PT HR DROP INTO 30'S. CHECKED ON HIM---BACK UP INTO THE 60. WILL CONTINUE TO MONITOR
--- NOTE | 2019-12-21 10:00 | NUR ---
DAUGHTER SUJATA TO SEE HE FATHER. PT SEEMS TO BE ENJOYING HIS VISIT. HR 64.
[2019-12-21 11:22] VITALS: BP 106/74
--- NOTE | 2019-12-21 11:45 | NUR ---
DR ARROYO TO SEE PT. NO NEW ORDERS RECEIVED.
--- NOTE | 2019-12-21 12:50 | NUR ---
PT REPOSITIONED FOR COMFORT ON LT SIDE.
[2019-12-21] MEDS ORDERED: POTASSIUM CHLORIDE 20 MEQ TAB CR PO SCH (14:00)
[2019-12-21] MEDS ORDERED: DEXTROSE 5% 1,000 ML IV ONE (14:30)
--- NOTE | 2019-12-21 16:30 | NUR ---
PT START ON D5 AT 100CC/HR FOR 10 HOURS. PROTONIX INFUSING ORDERED.
--- NOTE | 2019-12-21 18:43 | NUR ---
NO CHANGES AT THIS TIME IN PT STATUS.
--- NOTE | 2019-12-21 19:00 | NUR ---
Bedside repost and round completed with off going nurse. Patient in bed with no issues or concerns noted, call light within reach, bed locked and in lowest position. Will continue to monitor.
[2019-12-21 20:00] VITALS: BP 109/92
--- NOTE | 2019-12-21 22:03 | Progress Note ---
DATE: 12/21/2019 SUBJECTIVE: The patient reports no abdominal pain, no more rectal bleeding. Tolerating oral diet. Denies any abdominal pain. REVIEW OF SYSTEMS: GENERAL: Weakness, lethargy and easy fatigability. CVS: No chest pain, palpitation. RESPIRATORY: No cough or expectoration. MEDICATIONS: Intravenous Zosyn, pantoprazole infusion, Geodon 5 mg IV q.6 hours p.r.n., and Zofran 4 mg IV q.6 hours p.r.n. PHYSICAL EXAMINATION: VITAL SIGNS: Temperature 97.2, pulse 58, respirations 20, blood pressure 106/74, and oxygen saturation 100% on 2 L of nasal cannula. GENERAL: Obese body habitus, not in any apparent distress oral mucosa is moist. ABDOMEN: Obese, protuberant belly, soft, nondistended, and nontender. No palpable mass or hernia. Positive bowel sounds. LABORATORY DATA: Hemoglobin down to 7.3 from 7.7. No blood drawn today. Sodium 144, potassium 2.9, chloride 110, bicarb 27, BUN 52, and creatinine 1.89. IMPRESSION: Colonoscopy yesterday showed rectosigmoid mass, biopsied, highly suspicious for malignancy. Biopsy result is pending. Tattoos were done during colonoscopy for localization. PLAN: Follow up biopsy results. Discuss the patient's upper endoscopy as well as colonoscopy finding with Dr. Nieves. Surgery has been consulted. The patient is leaning towards no intervention. We will continue to follow him clinically and would respect his and family's decision. Carlos Rodriguez MD SA/CHLOÉ /[id number]
[2019-12-22] VITALS (8 sets, daily range): BP systolic 92–123; BP diastolic 44–61
[2019-12-22] MEDS: PIPER-TAZ 3.375 GM 50 ML IV SCH ×4 (02:00→20:27)
[2019-12-22] MEDS: PANTOPRAZOLE INJ 40 MG in SODIUM CHLORIDE 0.9% 50ML 50 ML IV SCH ×5 (02:40→22:33)
[2019-12-22 05:34] LABS: BASOPHILS # (AUTO) 0.1 (0.0-0.1); BASOPHILS % 0.9 % (0.0-1.0); EOSINOPHILS # (AUTO) 0.4 (0.0-0.4); EOSINOPHILS % 4.2 % (0.0-6.0); HEMOGLOBIN 7.5 g/dL (14.0-18.0); LYMPHOCYTES # (AUTO) 1.7 (1.0-3.2); LYMPHOCYTES % 16.8 % (18.0-39.1); MEAN CORPUSCULAR HGB CONC 32.6 g/dL (31-35); MEAN CORPUSCULAR VOLUME 101.3 fL (81-99); MONOCYTES # (AUTO) 1.1 (0.2-0.8); MONOCYTES % 11.4 % (4.4-11.3); NEUTROPHILS # (AUTO) 6.6 (2.1-6.9); NEUTROPHILS % 66.1 % (38.7-80.0); PLATELET COUNT 230 x10e3/uL (140-360); RED BLOOD COUNT 2.27 x10e6/uL (4.3-5.7)
[2019-12-22] MEDS ORDERED: SODIUM CHLORIDE 0.9% 250ML 250 ML ONE ×2 (05:45→20:54)
[2019-12-22 05:59] LABS: ALBUMIN 1.9 g/dL (3.5-5.0); ALBUMIN/GLOBULIN RATIO 0.6 (0.8-2.0); ANION GAP 12.2 mmol/L (8-16); CALCIUM 7.3 mg/dL (8.4-10.2); CREATININE, SERUM 1.66 mg/dL (0.72-1.25); PHOSPHORUS 3.1 MG/DL (2.3-4.7); POTASSIUM 3.2 mmol/L (3.5-5.1)
--- NOTE | 2019-12-22 06:35 | NUR ---
Dr Nieves on unit. Labs reviewed new order for potassium chloride 20 mEq po x1.
--- NOTE | 2019-12-22 06:55 | NUR ---
Bedside repost and round completed with on coming nurse. Patient in bed with no issues or concerns noted, call light within reach, bed locked and in lowest position. Will continue to monitor.
[2019-12-22] MEDS ORDERED: POTASSIUM CHLORIDE 20 MEQ TAB CR PO ONE (07:00)
--- NOTE | 2019-12-22 07:00 | NUR ---
bedside rounds complete no distress noted, updated on poc voiced understanding, denies pain at this time, protonix drip to r hand 20g no ss of infiltration noted, engle to bsg with yellow urine noted, o2 @ 1 L NC, no other co voiced call light in reach will continue to monitor
--- NOTE | 2019-12-22 07:25 | Progress Note ---
DATE: SUBJECTIVE: The patient is an 84-year-old gentleman with history of atrial fibrillation and preserved heart failure, who was in his usual state of health. The patient came in with massive mild GI bleed. The patient's bleed was stopped and currently was found to have a rectosigmoid mass, colonic mass. Consult with Surgery was done. The patient's biopsies pending at this time. Currently, still short of breath, very weak, very fatigued. Did have a long discussion with the patient again today on the progression of his medical plan. Currently, the patient does not want to do any intervention. No surgery at this time. The patient is still short of breath and very weak and very frail. OBJECTIVE: VITAL SIGNS: Temperature is 97.6, pulse of 50, respirations of 12, blood pressure is 96/44, pulse oximetry of 96% on 2 L of nasal cannula. HEENT: Normocephalic and atraumatic. The patient is morbidly obese. CVS: S1 and S2 distant. Irregular. ABDOMEN: Tender in the left lower quadrant. EXTREMITIES: Positive for edema with vascular changes. LABORATORY VALUES: Today's white count is better at 10.01, hemoglobin 7.5, hematocrit 23.0. Chemistry shows sodium 144, potassium 3.2, CO2 was 25, BUN of 48 and creatinine of 1.66. IMAGING STUDIES: None done. ASSESSMENT: Mr. Walter Adhikari with, 1. 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 Awaiting pathology results, currently unavailable. 2. Preserved heart failure with atrial fibrillation, ejection fraction of 40% to 50% with diastolic dysfunction. 3. Acute renal failure, getting better. Continue monitoring the patient. 4. Leukocytosis. The patient's white count is better on antibiotic at this time. 5. Morbid obesity with possible sleep apnea. PLAN: We will talk to the family and discuss with family again with his progression and also plan for the future. If all fails, the patient's family and the patient wants to have nothing done, probably palliative care might not be a bad idea. Further recommendation and clinical course. We will continue to monitor the patient's. Dr. Gore and Dr. Carlos Rodriguez are on the case. Rosales Nieves MD ASJ/MODL /[id number]
[2019-12-22] MEDS: FLUTICASONE PROPIONATE NASAL SPRAY NS SCH ×2 (12:38→16:47)
--- NOTE | 2019-12-22 16:59 | NUR ---
REPORT CALLED TO RECEIVING NURSE, PT TRANSFERRED TO RM 113, FAMILY NOTIFIED OF ROOM NUMBER
[2019-12-22] MEDS ORDERED: AZELASTINE HCL 137 MCG NASAL SPRAY NS SCH (17:00)
--- NOTE | 2019-12-22 17:23 | NUR ---
pt arrived to room 113 from [facility]. pt awake, alert, oriented X3, no signs of distress. will continue to monitor.
--- NOTE | 2019-12-22 17:45 | NUR ---
Nutrition Screen Note RD Recommendation for Physician: - Continue Cardiac diet Plan of Care: RD following, monitoring for tolerance and adequacy Nutrition reason for involvement: LOS Primary Diagnose(s): lower GIB, afib, CHF PMH: CHF, HTN, HLD, Fe deficiency anemia Ht: 67 in Wt: 312 lb BMI: 48.9 kg/m2 IBW: [address] Assessment: (12/21) 84 YOM admitted for lower GIB, afib, and CHF. Pt evaluated today for LOS. 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 Pt reports UBW of 330#, no significant wt change noted. Pt denies any N/V/C/D and denies any difficulties chewing or swallowing. Pt reports last BM 2 days ago. Pt with no questions or concerns at this time. Chart reviewed. Labs and meds reviewed. Will continue to monitor. Current Diet: Cardiac Malnutrition Evaluation (12/22/19) The patient does not meet criteria for a specified degree of malnutrition at this time. Will re-evaluate at follow-up as appropriate. Energy intake: <75% of estimated energy requirements for >1 month Weight loss: Does not meet criteria- 5% wt loss in 4 months, insignificant change Fat loss: does not meet criteria- obese, BMI 48.9 Muscle loss: unable to evaluate Supporting Evidence: Fluid accumulation: edema per MD notes, hx of CHF Functional Status: not assessed Diet Education Needs Assessment: Diet education indicated, pt not appropriate at this time- very SOB Diet tolerance: tolerating po Nutrition Care Level: low Signed: Veena Diamond RD, LD, [facility]
--- NOTE | 2019-12-22 19:17 | NUR ---
RECEIVED REPORT FROM PREVIOUS NURSE. CALL LIGHT WITHIN REACH. PATIENT ASLEEP IN BED
--- NOTE | 2019-12-22 22:28 | NUR ---
CALLED AND TALKED TO DR. CUEVA ABOUT PATIENT COMPLAINING OF PAIN [address] CUEVA SAID TO GIVE TRAMADOL 50 MG AND ZOFRAN.
[2019-12-22] MEDS ORDERED: TRAMADOL HCL 50 MG TAB PO ONE (22:30)
[2019-12-22] MEDS: ONDANSETRON HCL INJ 2MG/ML 2ML 2 MG/ML VIAL IV PRN (22:37)
--- NOTE | 2019-12-23 | NUR ---
[facility] PERFORMED
[2019-12-23] MEDS: PIPER-TAZ 3.375 GM 50 ML IV SCH ×4 (02:13→20:00)
[2019-12-23] MEDS: PANTOPRAZOLE INJ 40 MG in SODIUM CHLORIDE 0.9% 50ML 50 ML IV SCH ×5 (04:29→23:30)
[2019-12-23 04:30] VITALS: BP 103/65
--- NOTE | 2019-12-23 06:44 | NUR ---
CALLED DR. Annemarie PATTERSON ABOUT CONSULTATION FOR SURGERY. DR. CUEVA SAID TO CALL HIM TO TALK TO THE FAMILY ABOUT SURGERY FOR THE PATIENT
--- NOTE | 2019-12-23 07:08 | NUR ---
received patient lying in bed with eyes open. Respiration even and unlabored without SOB. Indwelling engle catheter intact, secured to leg. Call light in reach.
--- NOTE | 2019-12-23 07:40 | NUR ---
GAVE REPORT TO ONCOMING NURSE. CALL LIGHT WITHIN REACH. PATIENT IN BED. PATIENT IN NO PAIN OR DISTRESS
--- NOTE | 2019-12-23 08:04 | Progress Note ---
DATE: SUBJECTIVE: This is an 84-year-old gentleman, who comes in with rectal bleeding, was found to have a rectosigmoid mass. The patient continues to do fair better, however, has improved. Anticoagulation is stopped. The patient is currently in atrial fibrillation and has a history of coronary artery disease that is stable. The patient has congestive heart failure with preserved ejection fraction and mitral regurgitation. Currently, the patient is thinking more in tune of surgery. I had a long discussion with him and will have Dr. Jah Duque discuss with him the surgery and options. OBJECTIVE: VITAL SIGNS: Temperature is 96.8, pulse 65, respirations of 20, blood pressure is 103/65, pulse oximetry of 96%. HEENT: Normocephalic and atraumatic. The patient is morbidly obese. CVS: S1 and S2. Irregular. ABDOMEN: Nontender and nondistended. EXTREMITIES: No clubbing. No cyanosis. Positive for edema, which is lymphedema and also pitting edema. LABORATORY STUDIES: White count as of yesterday; hemoglobin was white count is 10.0, hemoglobin 7.5, hematocrit 23.5. Chemistries show; sodium of 141, potassium 3.2, BUN of 48 and creatinine of 1.66. AST was 94. Microbiology; blood cultures, no growth after 72 hours. Pathology; transverse colon and rectum shows high-grade dysplasia. ASSESSMENT: Mr. Walter Adhikari with acute gastrointestinal bleed with blood loss with a rectosigmoid mass with high-grade dysplasia. PLAN: 1. Surgical resection is recommended. We will talk to Dr. Jah Duque about surgery and continuation of treatment. 2. Chronic atrial fibrillation. The patient is off anticoagulation at this time. We will continue to keep him off anticoagulation in lieu of surgery. 3. Chronic preserved heart failure. I will continue to monitor his ins and outs and also his volume. 4. Acute renal failure. The patient is better. Some resuscitation has been done. Currently, the patient is off fluids. PLAN: Again continue to monitor the patient's in's and out's. Medications have been reviewed. The patient and family will have a discussion with Dr. Jah Duque. Lastly, the patient's leukocytosis have completely resolved. We will continue monitoring him and also keep him on the Zosyn at this time. Further recommendation per clinical course. We will continue to monitor the patient. MD ANDREW Varma/MODL /[id number]
[2019-12-23 08:09] VITALS: BP 103/65
[2019-12-23 08:38] VITALS: BP 124/59
[2019-12-23] MEDS ORDERED: PANTOPRAZOLE 40 MG 10ML VIAL ONE (08:39)
[2019-12-23] MEDS: FLUTICASONE PROPIONATE NASAL SPRAY NS SCH ×2 (09:33→17:34)
--- NOTE | 2019-12-23 11:05 | NUR ---
Called Dr. Nieves's answering service for potassium level of 3.2. Awaiting for call back and orders.
[2019-12-23 12:00] VITALS: BP 97/56
[2019-12-23 14:04] LABS: ANION GAP 11.3 mmol/L (8-16); CALCIUM 7.5 mg/dL (8.4-10.2); CREATININE, SERUM 1.75 mg/dL (0.72-1.25); POTASSIUM 3.3 mmol/L (3.5-5.1)
[2019-12-23] MEDS ORDERED: POTASSIUM CHLORIDE 20MEQ/100ML 200 ML IV ONE (16:00)
[2019-12-23 16:30] VITALS: BP 128/65
--- NOTE | 2019-12-23 19:10 | NUR ---
Report given to retail shift supervisor. Respiration even and unlabored without SOB. call light in reach.
[2019-12-23 20:45] VITALS: BP 126/67
[2019-12-23] MEDS: TRAMADOL HCL 50 MG TAB PO PRN (20:45)
--- NOTE | 2019-12-23 20:45 | NUR ---
PATIENT IS RESTING IN BED IN STABLE CONDITION, NO SIGNS OF DISTRESS NOTED. NEW IV ACCESS STARTED IN RIGHT FOREARM AND IS PATENT AND INTACT. IV POTASSIUM HAS BEEN STARTED FOR PATIENT ORDERED BY PHYSICIAN. PATIENT VOICES PAIN AT A LEVEL OF 8 AND HAS BEEN MEDICATED. BED IS IN LOWEST POSITION, BOTH SIDE RAILS ARE UP, CALL LIGHT IS WITHIN EASY REACH, WILL CONTINUE TO MONITOR.
[2019-12-24 00:50] VITALS: BP 139/65
[2019-12-24] MEDS ORDERED: SODIUM CHLORIDE 0.9% 250ML 250 ML ONE (01:13)
[2019-12-24] MEDS: PIPER-TAZ 3.375 GM 50 ML IV SCH ×2 (02:06→07:54)
[2019-12-24] MEDS: PANTOPRAZOLE INJ 40 MG in SODIUM CHLORIDE 0.9% 50ML 50 ML IV SCH ×3 (02:42→07:54)
[2019-12-24 05:00] VITALS: BP 123/58
[2019-12-24 05:40] LABS: BASOPHILS # (AUTO) 0.1 (0.0-0.1); BASOPHILS % 0.8 % (0.0-1.0); EOSINOPHILS # (AUTO) 0.4 (0.0-0.4); EOSINOPHILS % 3.9 % (0.0-6.0); HEMATOCRIT 24.6 % (38.2-49.6); HEMOGLOBIN 7.7 g/dL (14.0-18.0); LYMPHOCYTES # (AUTO) 1.8 (1.0-3.2); LYMPHOCYTES % 19.8 % (18.0-39.1); MEAN CORPUSCULAR HEMOGLOBIN 32.9 pg (28-32); MEAN CORPUSCULAR HGB CONC 31.3 g/dL (31-35); MEAN CORPUSCULAR VOLUME 105.1 fL (81-99); MONOCYTES % 11.1 % (4.4-11.3); NEUTROPHILS # (AUTO) 5.9 (2.1-6.9); PLATELET COUNT 245 x10e3/uL (140-360); RED BLOOD COUNT 2.34 x10e6/uL (4.3-5.7); RED CELL DISTRIBUTION WIDTH 19.1 % (11.7-14.4)
[2019-12-24 05:57] LABS: ANION GAP 9.7 mmol/L (8-16); CALCIUM 7.6 mg/dL (8.4-10.2); CREATININE, SERUM 1.55 mg/dL (0.72-1.25); POTASSIUM 3.7 mmol/L (3.5-5.1)
[2019-12-24] MEDS: TRAMADOL HCL 50 MG TAB PO PRN (06:05)
--- NOTE | 2019-12-24 06:30 | NUR ---
SPOKE WITH DR. CUEVA REGARDING PATIENT ORDERS. WAS TOLD TO HAVE PATIENT HAVE A CASE MANAGEMENT EVALUATION FOR HOME HEALTH, PHYSICAL THERAPY, AND DISCHARGE. ORDERS WERE PUT IN.
--- NOTE | 2019-12-24 07:00 | Progress Note ---
DATE: SUBJECTIVE: The patient is an 84-year-old gentleman, who came with rectal bleeding, was found to have a rectosigmoid mass with dysplasia. The patient is doing well. Currently, no chest pain. No shortness of breath. The patient is back to his baseline, was seen by Dr. Duque yesterday and plans for outpatient scheduled surgery therapy has been ordered. The patient has been working on therapies. A home health will be ordered. The patient can be discharged home today if everything lines up. OBJECTIVE: VITAL SIGNS: Temperature is 96.5, pulse of 57, respirations of 18, blood pressure is 139/65, pulse oximetry of 95%. HEENT: Normocephalic and atraumatic. The patient is obese. CVS: S1 and S2. Irregular. ABDOMEN: Nontender and nondistended. EXTREMITIES: Positive for edema and vascular changes. LABORATORY VALUES: White count is pending today. Chemistries as of today BUN of 44, creatinine of 1.55, glucose of 88, and calcium of 7.6, magnesium is 2.2. ASSESSMENT: Mr. Walter Adhikari with: 1. Gastrointestinal bleed with rectosigmoid mass with high-grade dysplasia. Recommendation would be surgical resection of the tumor on a later date as an outpatient basis. 2. Chronic atrial fibrillation with preserved ejection fraction. PLAN: 1. Continue to keep him off anticoagulation at this time, especially in lieu of blood loss. 2. Acute renal failure has come down to baseline to his chronic renal baseline. Further recommendation per clinical course. We will continue to monitor the patient. The patient's other diagnosis includes leukocytosis, which is much better. Plan is to discharge the patient today with home health. MD CARLTON VarmaJ/MODL /[id number]
--- NOTE | 2019-12-24 07:10 | NUR ---
Received patient lying in bed with eyes open. Respiration even and unlabored without SOB. Call light in reach.
[2019-12-24] MEDS: FLUTICASONE PROPIONATE NASAL SPRAY NS SCH (07:54)
[2019-12-24 07:56] VITALS: BP 109/65
--- NOTE | 2019-12-24 09:00 | NUR ---
Paiz catheter discontinued, catheter intact. Due to void at 1500.
[2019-12-24 09:08] VITALS: BP 109/65
--- NOTE | 2019-12-24 11:00 | NUR ---
Patient voided 2 times at this time in urinal with 100 ml yellow- colored urine.
[2019-12-24 11:29] VITALS: BP 115/67
--- NOTE | 2019-12-24 12:15 | NUR ---
Spoke with Dr. Marquez Duque and states okay to discharge the patient home today. Surgery is not necessary at this time.
[2019-12-24] MEDS ORDERED: ULTRAM50 MG PO (12:58)
--- NOTE | 2019-12-24 14:10 | NUR ---
Discharge education given. Verbalized understanding, discharge packet and home prescription given. PIV to right FA discontinued,catheter tip intact, no bleeding noted. Transported via wheelchair to private vehicle with family members waiting. All personal belongings taken.
--- NOTE | 2019-12-24 15:13 | NUR ---
MET W THE PT AT THE BEDSIDE TO DISCUSS CHOICE FOR HOME HEALTH. 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 STATES PT WAS GREAT, BUT NURSING NEEDED TO HONOR THEIR WORD FAR VISITS. CHOICE LETTER WAS SIGNED AND COPY TO THE PT AND COPY TO THE CHART. REFERRAL WAS FAXED TO [facility] @ [facility] [phone] / FAX: [phone]. PT STATES HE HAD THEIR FOLDER STILL AT HIS HOME TO CONTACT THEM IF NEEDED.
== END 2019-12-24 14:11 | disposition home health service (06) | DRG 393 ==
LOC: ER 15:49 → ERHOLD 17:36 → MED/SURG 19:17 → ICU 23:06 → IMCU 12-18 05:49 → MED/SURG 12-22 17:34
PROVIDERS: ADMIT Family Medicine; ATTEND Family Medicine
PROC: 30233N1 Transfusion of Nonautologous Red Blood Cells into Peripheral Vein, Percutaneous Approach (ICD-10-PCS; 2019-12-17)
PROC: 0DBN8ZX Excision of Sigmoid Colon, Via Natural or Artificial Opening Endoscopic, Diagnostic (ICD-10-PCS; principal; 2019-12-19 08:00)
PROC: 0DBL8ZX Excision of Transverse Colon, Via Natural or Artificial Opening Endoscopic, Diagnostic (ICD-10-PCS; 2019-12-19 08:00)
PROC: 0DJ08ZZ Inspection of Upper Intestinal Tract, Via Natural or Artificial Opening Endoscopic (ICD-10-PCS; 2019-12-19 08:00)
DX: K63.9 Disease of intestine, unspecified (principal); G93.41 Metabolic encephalopathy; I48.20 Chronic atrial fibrillation, unspecified; N39.0 Urinary tract infection, site not specified; N17.9 Acute kidney failure, unspecified; I13.0 Hypertensive heart and chronic kidney disease with heart failure and stage 1 through stage 4 chronic kidney disease, or unspecified chronic kidney disease; I50.42 Chronic combined systolic (congestive) and diastolic (congestive) heart failure; Z68.42 Body mass index [BMI] 45.0-49.9, adult; K63.5 Polyp of colon; Z79.01 Long term (current) use of anticoagulants; I25.10 Atherosclerotic heart disease of native coronary artery without angina pectoris; E78.5 Hyperlipidemia, unspecified; Z95.1 Presence of aortocoronary bypass graft; Z86.718 Personal history of other venous thrombosis and embolism; I34.0 Nonrheumatic mitral (valve) insufficiency; G47.30 Sleep apnea, unspecified; N18.3 Chronic kidney disease, stage 3 (moderate); N40.1 Benign prostatic hyperplasia with lower urinary tract symptoms; E66.01 Morbid (severe) obesity due to excess calories; K57.30 Diverticulosis of large intestine without perforation or abscess without bleeding; K64.0 First degree hemorrhoids; D64.9 Anemia, unspecified
CPT/HCPCS: 36415; 36600; 43235; 45380; 45385; 71045; 76705; 76770; 80048; 80053; 81001; 82140; 82550; 82553; 82977; 83735; 83880; 84100; 84443; 84484; 85014; 85018; 85025; 85610; 85730; 86850; 86900; 86920; 87040; 88305; 93005; 93306; 96361; 97139; 99251; 99284; J1170; J2405; J2543; J3480; J3486; J7030; J7050; J7070; P9016

== ENCOUNTER 2020-01-01 08:47 | Inpatient (IN) | payer MEDICARE ==
[2020-01-01] VITALS (8 sets, daily range): BP systolic 115–121; BP diastolic 50–61
[~2020-01-01] VITALS: Ht 170.2 cm; Wt 141.5 kg
[~2020-01-01 08:47] MED LIST changes: +AZELASTINE137 MCG/0.; +NYSTATIN100000 UNI TOP; +ULTRAM50 MG PO
[2020-01-01] MEDS ORDERED: PANTOPRAZOLE 40 MG 10ML VIAL IV STA (08:50)
[2020-01-01] MEDS ORDERED: TERAZOSIN HCL5 MG PO (08:58)
[2020-01-01 09:22] LABS: BASOPHILS # (AUTO) 0.1 (0.0-0.1); BASOPHILS % 0.9 % (0.0-1.0); EOSINOPHILS # (AUTO) 0.3 (0.0-0.4); EOSINOPHILS % 4.1 % (0.0-6.0); HEMATOCRIT 26.1 % (38.2-49.6); LYMPHOCYTES # (AUTO) 1.4 (1.0-3.2); MEAN CORPUSCULAR HEMOGLOBIN 32.4 pg (28-32); MEAN CORPUSCULAR HGB CONC 30.7 g/dL (31-35); MEAN CORPUSCULAR VOLUME 105.7 fL (81-99); MONOCYTES # (AUTO) 0.7 (0.2-0.8); MONOCYTES % 9.9 % (4.4-11.3); NEUTROPHILS # (AUTO) 4.2 (2.1-6.9); NEUTROPHILS % 63.8 % (38.7-80.0); PLATELET COUNT 223 x10e3/uL (140-360); RED BLOOD COUNT 2.47 x10e6/uL (4.3-5.7); RED CELL DISTRIBUTION WIDTH 17.8 % (11.7-14.4)
[2020-01-01 09:55] LABS: INR 1.28; PROTHROMBIN TIME 16.8 seconds (11.9-14.5)
[2020-01-01 10:00] LABS: CREATINE KINASE MB 3.5 ng/mL (0-5.0)
[2020-01-01 10:02] LABS: ALBUMIN/GLOBULIN RATIO 0.6 (0.8-2.0); ANION GAP 9.6 mmol/L (8-16); CREATININE, SERUM 1.5 mg/dL (0.72-1.25); POTASSIUM 3.6 mmol/L (3.5-5.1)
--- NOTE | 2020-01-01 10:23 | Diagnostic Imaging Report ---
EXAMINATION: CHEST SINGLE (PORTABLE) INDICATION: Gastrointestinal bleeding, preoperative COMPARISON: Chest radiograph of 12/16/2019 FINDINGS: LINES/TUBES:EKG leads overlie the chest. LUNGS:The lung volumes are low. There is perihilar fullness and indistinctness of the pulmonary vasculature. There is left basilar opacity silhouetting the left samreen diaphragm. PLEURA:Possible small left pleural effusion. No pneumothorax. MEDIASTINUM:The cardiomediastinal silhouette appears unchanged in size and shape. BONES/SOFT TISSUES:No acute osseous injury. ABDOMEN:No free air under the diaphragm. IMPRESSION: Low lung volumes. Pulmonary interstitial edema. Left basilar opacity, more likely subsegmental atelectasis than superimposed aspiration or pneumonia. Signed by: Sharee Oneal MD on 01/01/2020 10:20 AM
[2020-01-01 15:34] LABS: HEMATOCRIT 24.8 % (38.2-49.6); HEMOGLOBIN 7.7 g/dL (14.0-18.0)
[2020-01-01] MEDS ORDERED: TRAMADOL HCL 50 MG TAB PO PRN (18:15)
[2020-01-01] MEDS ORDERED: SODIUM CHLORIDE 0.9% 250ML 250 ML IV ONE (18:45)
--- NOTE | 2020-01-01 19:00 | NUR ---
RECEIVED REPORT FROM [facility] NURSEVelasquez HENRY3. RESTING IN BED. R AC 18G SALINE LOCK. NO SIGNS OF INFILTRATION. CALL LIGHT WITHIN REACH. BED LOCKED AND IN LOW POSITION. Addendum: 01/02/20 at 0752 by Samantha Shipley RN PLEASE DISREGARD PREVIOUS NOTE. RECEIVED REPORT FROM [facility] NURSEVelasquez AAOX3. RESTING IN BED. R AC 18G INFUSING NS AT 50 ML/HR. NO SIGNS OF INFILTRATION. CALL LIGHT WITHIN REACH. BED ALARM ON. BED LOCKED AND IN LOW POSITION.
--- NOTE | 2020-01-01 19:09 | History and Physical ---
CHIEF COMPLAINT: The patient is an 84-year-old gentleman with a history of congestive heart failure, recently discharged from the hospital for rectal bleeding. HISTORY OF PRESENT ILLNESS: Mr. Adhikari is an 84-year-old gentleman with a history of rectal bleeding, was released a week prior to this admission. The patient had a rectal bleeding. No transfusions were done. The patient also was held off his anticoagulation. Decision was made to do surgery for the high-grade dysplasia in the rectosigmoid area by Dr. Jah Duque, but today this morning, the patient woke up and had a large amount of rectal bleeding, large clots were passed and the patient came into the emergency room, was admitted for rectal bleeding and admitted for serial H and Hs. PAST MEDICAL HISTORY: History of hypertension, history of hyperlipidemia, history of benign prostatic hypertrophy, history of iron deficiency anemia, history of congestive heart failure, history of coronary artery disease. MEDICATIONS: He takes at home furosemide 40 mg twice a day, lisinopril 20 mg once a day, metolazone 5 mg daily, potassium chloride, terazosin 2 mg and warfarin which has been stopped. PAST SURGICAL HISTORY: History of coronary artery bypass in 2002, five vessel disease. The patient also has ear surgery, back surgery, history of DVT in the past too. ALLERGIES: ALLERGIC TO CLINDAMYCIN AND LEVAQUIN. SOCIAL HISTORY: No EtOH. No IV drug abuse. No history of smoking. 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 REVIEW OF SYSTEMS: Negative for chest pain. No shortness of breath. No nausea, no vomiting. Positive for diarrhea with blood. Positive for hematochezia. No hematemesis. No blurry vision. No headaches. No diplopia either. PHYSICAL EXAMINATION: GENERAL: Alert and oriented. VITAL SIGNS: Temperature 97.6, pulse of 67, respirations of 18, blood pressure is 121/61, pulse oximetry of 98%. HEENT: Normocephalic and atraumatic. Pupils are reactive. CVS: S1 and S2. Irregular. ABDOMEN: Nontender, nondistended, pendulous. EXTREMITIES: Positive for lymphedema. LABORATORY VALUES: Initial white count of 6.58, hemoglobin of 8.0, hematocrit of 26.0. Repeat H and H of 7.7 and 24.8. Chemistry shows sodium of 139, potassium of 3.6, BUN of 37, creatinine of 1.50, total bilirubin is 2.5, AST 69, ALT 39, troponin was 0.057. IMAGING STUDIES: Chest x-ray was only thing done. The patient had a large left bibasilar opacity, atelectasis versus pneumonia. The patient is blood type O positive. The transverse colon biopsy taken shows tubular adenoma with hyperchromatic and pseudostratified nucleoli with a prominent villous architecture. ASSESSMENT: Mr. Adhikari with tubular adenoma continues to bleed, high-grade dysplasia. The patient will be kept off his anticoagulation. A consult with Dr. Jah Duque will be done. Serial H and Hs will be done and followed through. The patient will be monitored for hemodynamic stability. Medicines will be continued. Further recommendation per clinical course and also depending on surgery. MD CARLTON VarmaJ/MODL /[id number]
[2020-01-01 19:49] LABS: BASOPHILS # (AUTO) 0.1 (0.0-0.1); EOSINOPHILS # (AUTO) 0.3 (0.0-0.4); EOSINOPHILS % 4.5 % (0.0-6.0); HEMATOCRIT 25.9 % (38.2-49.6); LYMPHOCYTES # (AUTO) 1.3 (1.0-3.2); LYMPHOCYTES % 22.5 % (18.0-39.1); MEAN CORPUSCULAR HEMOGLOBIN 32.4 pg (28-32); MEAN CORPUSCULAR HGB CONC 30.9 g/dL (31-35); MEAN CORPUSCULAR VOLUME 104.9 fL (81-99); MONOCYTES # (AUTO) 0.6 (0.2-0.8); MONOCYTES % 9.9 % (4.4-11.3); NEUTROPHILS # (AUTO) 3.6 (2.1-6.9); NEUTROPHILS % 61.8 % (38.7-80.0); PLATELET COUNT 210 x10e3/uL (140-360); RED BLOOD COUNT 2.47 x10e6/uL (4.3-5.7); RED CELL DISTRIBUTION WIDTH 17.7 % (11.7-14.4)
[2020-01-02] VITALS (8 sets, daily range): BP systolic 120–135; BP diastolic 56–66
[2020-01-02 01:11] LABS: HEMATOCRIT 25.1 % (38.2-49.6); HEMOGLOBIN 7.8 g/dL (14.0-18.0)
--- NOTE | 2020-01-02 05:12 | NUR ---
DR. LEE COVERING FOR DR. CUEVA AT THIS TIME. NEW ORDER RECEIVED FOR NS AT 50ML/HR
[2020-01-02 05:24] LABS: HEMATOCRIT 27.7 % (38.2-49.6); HEMOGLOBIN 8.1 g/dL (14.0-18.0)
[2020-01-02] MEDS: SODIUM CHLORIDE 0.9% 1000ML 1,000 ML IV SCH (05:45)
--- NOTE | 2020-01-02 07:39 | NUR ---
RECEIVED BEDSIDE SHIFT REPORT FROM OFF GOING NURSE. PATIENT IS RESTING IN BED. NO ACUTE DISTRESS NOTED. CALL LIGHT WITHIN REACH. BED IN THE LOWEST POSITION.
--- NOTE | 2020-01-02 07:48 | NUR ---
REPORT GIVEN TO [facility]. AAOX3. RESTING IN BED. R AC 18G INFUSING NS AT 50ML/HR. NO SIGNS OF INFILTRATION. CALL LIGHT WITHIN REACH. BED LOCKED AND IN LOW POSITION.
[2020-01-02] MEDS: PANTOPRAZOLE 40 MG 10ML VIAL IV SCH (09:18)
[2020-01-02 09:51] LABS: BASOPHILS # (AUTO) 0.1 (0.0-0.1); EOSINOPHILS # (AUTO) 0.2 (0.0-0.4); EOSINOPHILS % 3.7 % (0.0-6.0); HEMATOCRIT 25.8 % (38.2-49.6); HEMOGLOBIN 7.8 g/dL (14.0-18.0); LYMPHOCYTES # (AUTO) 1.4 (1.0-3.2); LYMPHOCYTES % 23.6 % (18.0-39.1); MEAN CORPUSCULAR HEMOGLOBIN 32.2 pg (28-32); MEAN CORPUSCULAR HGB CONC 30.2 g/dL (31-35); MEAN CORPUSCULAR VOLUME 106.6 fL (81-99); MONOCYTES # (AUTO) 0.4 (0.2-0.8); MONOCYTES % 7.3 % (4.4-11.3); NEUTROPHILS # (AUTO) 3.9 (2.1-6.9); NEUTROPHILS % 64.1 % (38.7-80.0); PLATELET COUNT 222 x10e3/uL (140-360); RED BLOOD COUNT 2.42 x10e6/uL (4.3-5.7); RED CELL DISTRIBUTION WIDTH 17.9 % (11.7-14.4)
[2020-01-02 12:38] LABS: HEMATOCRIT 26.2 % (38.2-49.6)
[2020-01-02 12:45] LABS: EOSINOPHILS % (MANUAL) 2 % (0-7); LYMPHOCYTES % (MANUAL) 17 % (19-48); MONOCYTES % (MANUAL) 9 % (3.4-9.0); NEUTROPHILS % (MANUAL) 72 % (40-74)
[2020-01-02] MEDS ORDERED: XARELTO20 MG PO (13:26)
[2020-01-02 17:59] LABS: HEMATOCRIT 28.1 % (38.2-49.6); HEMOGLOBIN 8.5 g/dL (14.0-18.0)
[2020-01-02] MEDS ORDERED: NYSTATIN1 EAC2 TOP (18:50)
--- NOTE | 2020-01-02 19:13 | NUR ---
BEDSIDE SHIFT REPORT GIVEN TO ONCOMING NURSE, PATIENT IS RESTING IN BED, NO S/S OF DISTRESS NOTED AT THIS TIME. CALL LIGHT WITHIN REACH. BED IN THE LOWEST POSITION.
[2020-01-03] VITALS (8 sets, daily range): BP systolic 124–174; BP diastolic 61–74
[2020-01-03 00:45] LABS: HEMATOCRIT 26.5 % (38.2-49.6); HEMOGLOBIN 8.1 g/dL (14.0-18.0)
[2020-01-03] MEDS: SODIUM CHLORIDE 0.9% 1000ML 1,000 ML IV SCH (01:12)
--- NOTE | 2020-01-03 06:10 | NUR ---
SPOKE TO DR. LEE COVERING FOR DR. CUEVA AT THIS TIME REGARDING HH. NEW ORDER RECEIVED TO [facility] Q6[facility].
[2020-01-03 06:15] LABS: HEMATOCRIT 26.9 % (38.2-49.6)
[2020-01-03 06:58] LABS: BASOPHILS # (AUTO) 0.1 (0.0-0.1); BASOPHILS % 0.9 % (0.0-1.0); EOSINOPHILS # (AUTO) 0.3 (0.0-0.4); EOSINOPHILS % 4.1 % (0.0-6.0); HEMATOCRIT 26.8 % (38.2-49.6); HEMOGLOBIN 8.3 g/dL (14.0-18.0); LYMPHOCYTES # (AUTO) 1.6 (1.0-3.2); LYMPHOCYTES % 20.5 % (18.0-39.1); MEAN CORPUSCULAR HEMOGLOBIN 32.9 pg (28-32); MEAN CORPUSCULAR VOLUME 106.3 fL (81-99); MONOCYTES # (AUTO) 0.7 (0.2-0.8); MONOCYTES % 8.9 % (4.4-11.3); NEUTROPHILS % 65.2 % (38.7-80.0); PLATELET COUNT 258 x10e3/uL (140-360); RED BLOOD COUNT 2.52 x10e6/uL (4.3-5.7)
--- NOTE | 2020-01-03 08:07 | NUR ---
MET W/ PATIENT. STATED DR. Annemarie PATTERSON IS HIS SURGEON AND IS OUT OF TOWN. STATED HIS COMMUNITY SERVICE DIRECTOR SAW HIM YESTERDAY, AND EXPLAINED DR. Marquez PATTERSON WILL SEE PATIENT ON SATURDAY, AND POSSIBLE SET HIM UP FOR SURGERY TO REMOVE TUMOR IN HIS INTESTINE. PT WAS TO HAVE SURGERY IN 2 WEEKS, BUT DUE TO BLEED WILL PROBABLY HAVE SURGERY W/ THIS ADMISSION.
--- NOTE | 2020-01-03 08:37 | NUR ---
NOTIFIED PT HE HAS BEEN CHANGED TO INPATIENT STATUS. EDUCATED ON IMM. HE VERBALIZED UNDERSTANDING AND SIGNED IMM. COPY PLACED IN TRANSITION FOLDER AT BEDSIDE, AND ORIGINAL PLACED IN CHART.
[2020-01-03] MEDS: MECOBALAMIN PO SCH (09:00)
[2020-01-03] MEDS: PANTOPRAZOLE 40 MG 10ML VIAL IV SCH (09:30)
[2020-01-03] MEDS: IRON-VITAMIN-MINERAL CAPSULE PO SCH (09:31)
[2020-01-03] MEDS: FUROSEMIDE 40 MG TAB PO SCH ×2 (09:32→16:48)
[2020-01-03] MEDS: TERAZOSIN HCL 5 MG CAP PO SCH (09:32)
[2020-01-03] MEDS: POTASSIUM CHLORIDE 20 MEQ TAB CR PO SCH ×2 (09:32→16:48)
[2020-01-03] MEDS: MAGNESIUM OXIDE 400 MG TAB PO SCH (09:32)
[2020-01-03] MEDS: METOLAZONE 5 MG TAB PO SCH (09:33)
[2020-01-03] MEDS: NYSTATIN 15 GM POWDER UD BTL TOP SCH (14:18)
[2020-01-03] MEDS: AZELASTINE HCL 137 MCG NASAL SPRAY NS SCH (14:18)
[2020-01-04] VITALS (9 sets, daily range): BP systolic 114–164; BP diastolic 53–73
[2020-01-04 05:47] LABS: BASOPHILS # (AUTO) 0.1 (0.0-0.1); BASOPHILS % 1.1 % (0.0-1.0); EOSINOPHILS # (AUTO) 0.4 (0.0-0.4); EOSINOPHILS % 5.7 % (0.0-6.0); HEMOGLOBIN 7.9 g/dL (14.0-18.0); LYMPHOCYTES # (AUTO) 1.7 (1.0-3.2); LYMPHOCYTES % 24.4 % (18.0-39.1); MEAN CORPUSCULAR HEMOGLOBIN 32.4 pg (28-32); MEAN CORPUSCULAR HGB CONC 30.4 g/dL (31-35); MEAN CORPUSCULAR VOLUME 106.6 fL (81-99); MONOCYTES # (AUTO) 0.8 (0.2-0.8); MONOCYTES % 11.9 % (4.4-11.3); NEUTROPHILS % 56.8 % (38.7-80.0); PLATELET COUNT 238 x10e3/uL (140-360); RED BLOOD COUNT 2.44 x10e6/uL (4.3-5.7); RED CELL DISTRIBUTION WIDTH 17.6 % (11.7-14.4)
--- NOTE | 2020-01-04 07:01 | Progress Note ---
DATE: SUBJECTIVE: The patient came in with gastrointestinal bleeding, rectal bleeding. The patient was found to have low H and H, kept overnight or the weekend for surgical evaluation and also possible surgery by Dr. Jah Duque. Currently, had some shortness of breath yesterday. Lasix was given and also fluids were stopped. The patient is feeling much better. However, still has some rectal bleeding. OBJECTIVE: VITAL SIGNS: Temperature is 99.1, pulse of 64, respirations of 18, blood pressure is 120/66, pulse oximetry of 99%. HEENT: Normocephalic and atraumatic. Pupils are reactive. CVS: S1 and S2 normal. Irregular. ABDOMEN: Nontender and nondistended. EXTREMITIES: No clubbing, no cyanosis. Positive for lymphedema and trace edema. MEDICATIONS: The patient is on 40 mg of Lasix, nystatin, metolazone, terazosin, Pantoprazole, and tramadol for pain. LABORATORY VALUES: Today's white count is 6.98, hemoglobin 7.9, hematocrit 26.0. BUN and creatinine are stable, the last one was 37 and 1.5 on 12/31. Coags are normal. ASSESSMENT: Mr. Walter Adhikari is an 84-year-old gentleman with: 1. 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 Plan, Dr. Duque is to see the patient today. Surgical evaluation will be done by him. 2. Atrial fibrillation. Continue to monitor the patient. The patient is off his anticoagulation. 3. Morbid obesity. 4. Hypertension. 5. Hyperlipidemia. 6. Coronary artery disease. 7. History of anticoagulation for chest pain. PLAN: As above. We will continue to monitor the patient's H and H and continue to monitor his creatinine levels. The last one was 1.50. Acute kidney injury will be checked again tomorrow. MD ANDREW Varma/CHLOÉ /[id number]
[2020-01-04] MEDS: MECOBALAMIN PO SCH (09:00)
[2020-01-04] MEDS: IRON-VITAMIN-MINERAL CAPSULE PO SCH (09:04)
[2020-01-04] MEDS: PANTOPRAZOLE 40 MG 10ML VIAL IV SCH (09:04)
[2020-01-04] MEDS: TERAZOSIN HCL 5 MG CAP PO SCH (09:05)
[2020-01-04] MEDS: MAGNESIUM OXIDE 400 MG TAB PO SCH (09:05)
[2020-01-04] MEDS: FUROSEMIDE 40 MG TAB PO SCH (09:05)
[2020-01-04] MEDS: POTASSIUM CHLORIDE 20 MEQ TAB CR PO SCH ×2 (09:05→17:26)
[2020-01-04] MEDS: METOLAZONE 5 MG TAB PO SCH (09:05)
[2020-01-04] MEDS: AZELASTINE HCL 137 MCG NASAL SPRAY NS SCH (09:06)
[2020-01-04] MEDS: NYSTATIN 15 GM POWDER UD BTL TOP SCH (09:06)
[2020-01-04 10:17] LABS: ALBUMIN 1.9 g/dL (3.5-5.0); ALBUMIN/GLOBULIN RATIO 0.5 (0.8-2.0); ANION GAP 8.8 mmol/L (8-16); CALCIUM 8.1 mg/dL (8.4-10.2); CREATININE, SERUM 1.26 mg/dL (0.72-1.25); POTASSIUM 3.8 mmol/L (3.5-5.1)
[2020-01-04 10:21] LABS: INR 1.27; PROTHROMBIN TIME 16.7 seconds (11.9-14.5)
--- NOTE | 2020-01-04 10:25 | Diagnostic Imaging Report ---
EXAMINATION: CHEST SINGLE (PORTABLE) INDICATION: CHF COMPARISON: Chest radiograph 01/01/2020 FINDINGS: LINES/TUBES:None LUNGS:Slight improvement in lung volumes. The lung volumes are main overall low. There is perihilar fullness and indistinctness of the pulmonary vasculature. There is left basilar opacity silhouetting the left samreen diaphragm. PLEURA:Possible small left pleural effusion. No pneumothorax. MEDIASTINUM:Cardiomediastinal silhouette is stably enlarged. Atherosclerotic calcifications of the thoracic aorta. BONES/SOFT TISSUES:No acute osseous injury. Sternotomy wires unchanged. ABDOMEN:No free air under the diaphragm. IMPRESSION: Low lung volumes with unchanged cardiomegaly and pulmonary interstitial edema. Unchanged left basilar opacity, most likely subsegmental atelectasis. Signed by: Sharee Oneal MD on 01/04/2020 10:21 AM
--- NOTE | 2020-01-04 10:37 | Consultation ---
DATE OF CONSULTATION: 01/04/2020 Cardiology Consultation Thank you so much for asking me to see this nice man again in consultation. REASON FOR CONSULTATION: Mr. Adhikari is a pleasant, complex and elderly 84-year-old man, who presented again to the emergency room on the evening of the with a complaint of lower GI bleeding. HISTORY OF PRESENT ILLNESS: The patient was recently discharged from the hospital where he had been diagnosed as having a rectosigmoid mass, but surgery was felt need to be postponed. He reports he was getting along fairly well at home until he developed bright red blood in the stool. PAST MEDICAL HISTORY: Long and complex with history of morbid obesity. The previous hospitalizations at [facility] December 17, 2019 and August 2019 with a lower GI bleeding. He had a coronary artery bypass graft surgery in 2002 with 5 grafts. EP study in 2006 for ventricular tachycardia. He had deep venous thrombosis associated with PICC line in the past, history of sleep apnea, anemia, hypertension, arthritis, benign prostatic hypertrophy, atrial fibrillation was diagnosed new in August of 2019. RECENT HOME MEDICATIONS: 1. Janine. 2. Potassium. 3. Magnesium. 4. Metolazone. 5. Furosemide. 6. Terazosin. PAST SURGICAL HISTORY: Back surgery in 1977, ear surgery in 1974, and a coronary bypass in 2002. PHYSICAL EXAMINATION: GENERAL: At this time shows a large obese man is alert, responsive. VITAL SIGNS: Blood pressure 160/70, pulse is 80 and irregularly irregular. HEAD, EYES, EARS, NOSE, AND THROAT: Otherwise unremarkable. NECK: Thick. Thorax, there is healed midline sternotomy. HEART: Sounds S1, S2 are equal, but irregular. LUNGS: Bibasilar crackles. ABDOMEN: Markedly protuberant, nontender. Normal bowel sounds. EXTREMITIES: Chronic trophic changes. LABORATORY DATA: Hemoglobin today 7.9. Other laboratory studies from December 31 shows BUN 37, creatinine 1.5, INR 1.28. Review of recent records showed that the rectosigmoid mass was reported as "high-grade dysplasia." ASSESSMENT: 1. Lower gastrointestinal bleeding. 2. Rectosigmoid mass. 3. Chronic atrial fibrillation. 4. Coronary artery disease, clinically stable after bypass graft surgery in 2002. 5. Volume overload. PLAN: I recommend stopping IV fluids and change furosemide IV. We will monitor his volume status and recommend plan for surgery. His risk is increased over others 84 years of age, but the surgery is required because of continued GI bleeding. Thank you for asking me to see him in consultation. MD ROBERTO Benjamin/CHLOÉ /[id number] cc: Jah Duque MD
[2020-01-04] MEDS: FUROSEMIDE INJ 10 MG/ML 4 ML VIAL IV SCH ×2 (12:19→21:02)
--- NOTE | 2020-01-04 19:07 | NUR ---
RECEIVED REPORT FROM PREVIOUS NURSE. CALL LIGHT WITHIN REACH. PATIENT IN BED.
[2020-01-05] VITALS (8 sets, daily range): BP systolic 121–149; BP diastolic 55–73
--- NOTE | 2020-01-05 01:32 | NUR ---
DID HOURLY ROUNDING. PATIENT IS ASLEEP IN BED. CALL LIGHT WITHIN REACH. PATIENT IN NO PAIN OR DISTRESS.
[2020-01-05 05:40] LABS: BASOPHILS # (AUTO) 0.1 (0.0-0.1); BASOPHILS % 1.2 % (0.0-1.0); EOSINOPHILS # (AUTO) 0.4 (0.0-0.4); EOSINOPHILS % 5.7 % (0.0-6.0); HEMATOCRIT 25.8 % (38.2-49.6); LYMPHOCYTES # (AUTO) 1.8 (1.0-3.2); LYMPHOCYTES % 26.6 % (18.0-39.1); MEAN CORPUSCULAR HEMOGLOBIN 32.5 pg (28-32); MEAN CORPUSCULAR VOLUME 104.9 fL (81-99); MONOCYTES # (AUTO) 0.6 (0.2-0.8); MONOCYTES % 9.4 % (4.4-11.3); NEUTROPHILS # (AUTO) 3.8 (2.1-6.9); NEUTROPHILS % 56.8 % (38.7-80.0); PLATELET COUNT 225 x10e3/uL (140-360); RED BLOOD COUNT 2.46 x10e6/uL (4.3-5.7); RED CELL DISTRIBUTION WIDTH 17.3 % (11.7-14.4)
[2020-01-05 06:08] LABS: ANION GAP 7.4 mmol/L (8-16); CREATININE, SERUM 1.27 mg/dL (0.72-1.25); POTASSIUM 3.4 mmol/L (3.5-5.1)
--- NOTE | 2020-01-05 07:00 | NUR ---
BEDSIDE SHIFT REPORT RECEIVED FROM THE POWERHOUSE HELPER RN. EDUCATED PT ABOUT FALL PRECAUTIONS. PT VERBALIZED UNDERSTANDING. CALL LIGHT WITH IN EASY REACH. BED IS LOW AND LOCKED. SIDE RAILS X2. BED ALARM IS ON. PT DENIES NEEDS AT THIS TIME.
--- NOTE | 2020-01-05 07:05 | Progress Note ---
DATE: SUBJECTIVE: The patient comes in with lower GI bleed. No bleeding noted from yesterday. Surgery is pending. The patient has been seen by Dr. Gore and cardiac consultation was done and clearance has been done too. Currently feeling some shortness of breath, but no nausea, no vomiting. OBJECTIVE: VITAL SIGNS: Temperature is 97.7, pulse of 61, respirations of 20, blood pressure is better at 121/55. HEENT: Normocephalic. The patient is morbidly obese. CVS: S1 and S2 irregular. ABDOMEN: Nontender, nondistended, pannus present. Positive for Leilani. EXTREMITIES: Positive for edema. MEDICATIONS: The patient is on Lasix 40 mg IV, nystatin , magnesium oxide as needed, terazosin 5 mg, metolazone 5 mg, and pantoprazole. His nifedipine has been stopped because of hypertension. LABORATORY VALUES: Today's sodium is 145, potassium 3.45, BUN of 28, creatinine of 1.27. Coags are normal. Hematology; hemoglobin of 8, hematocrit 25.8, and platelet count is 225. ASSESSMENT: Mr. Walter Adhikari with: 1. High-grade dysplasia of the rectosigmoid, needs surgery, cleared by Cardiology. 2. Morbid obesity. 3. Congestive heart failure. 4. Atrial fibrillation. 5. History of ventricular tachycardia. 6. Coronary artery disease with 5-vessel disease and graft. PLAN: The patient is high risk for surgery, but will need it because of continued with lower GI bleed. Further recommendation per clinical course. We will continue to monitor the patient along with consultants and Surgery recommendations awaited. MD CARLTON VarmaJ/MODL /[id number]
--- NOTE | 2020-01-05 07:13 | NUR ---
GAVE BEDSIDE SHIFT REPORT TO ONCOMING NURSE. CALL LIGHT WITHIN REACH. PATIENT IN BED
[2020-01-05] MEDS: MECOBALAMIN PO SCH (09:00)
[2020-01-05] MEDS: AZELASTINE HCL 137 MCG NASAL SPRAY NS SCH (09:29)
[2020-01-05] MEDS: IRON-VITAMIN-MINERAL CAPSULE PO SCH (09:29)
[2020-01-05] MEDS: FUROSEMIDE INJ 10 MG/ML 4 ML VIAL IV SCH ×2 (09:29→21:16)
[2020-01-05] MEDS: PANTOPRAZOLE 40 MG 10ML VIAL IV SCH (09:29)
[2020-01-05] MEDS: POTASSIUM CHLORIDE 20 MEQ TAB CR PO SCH ×2 (09:30→18:00)
[2020-01-05] MEDS: MAGNESIUM OXIDE 400 MG TAB PO SCH (09:30)
[2020-01-05] MEDS: TERAZOSIN HCL 5 MG CAP PO SCH (09:30)
[2020-01-05] MEDS: METOLAZONE 5 MG TAB PO SCH (09:30)
[2020-01-05] MEDS: NYSTATIN 15 GM POWDER UD BTL TOP SCH (09:30)
--- NOTE | 2020-01-05 10:30 | NUR ---
16 FR QUEVEDO CATHETER INSERTED PER DR. ARROYO. PT TOLERATED WELL. 2 NURSES VERIFICATION DONE. CLEAR YELLOW URINE NOTED IN QUEVEDO BAG. PT DENIED FURTHER NEEDS.
[2020-01-05] MEDS: CITRATE OF MAGNESIA 300ML BOTTLE PO SCH (18:25)
--- NOTE | 2020-01-05 19:10 | NUR ---
BEDSIDE SHIFT REPORT GIVEN TO THE CHARGE LPN RN. PT DENIED FURTHER NEEDS.
--- NOTE | 2020-01-05 19:13 | NUR ---
RECEIVED REPORT FROM PREVIOUS NURSE. CALL LIGHT WITHIN REACH. PATIENT IN BED. QUEVEDO IS DRAINING WELL.
--- NOTE | 2020-01-05 23:30 | NUR ---
received report at time. no ss of distress noted. tele in place. engle draining to gravity. call rhodes within reach.
[2020-01-06] VITALS (8 sets, daily range): BP systolic 112–137; BP diastolic 49–73
--- NOTE | 2020-01-06 00:28 | NUR ---
GAVE REPORT TO JODY BRYANT. CALL LIGHT WITHIN REACH. PATIENT IN BED. Addendum: 01/06/20 at 0029 by Chrissie Caba RN EMY RAMESH
--- NOTE | 2020-01-06 02:46 | NUR ---
large bm noted. pt cleaned. linen changed. no distress noted. call rhodes within reach.
--- NOTE | 2020-01-06 04:54 | NUR ---
sm bm noted. pt cleaned and repositioned. no ss of distress noted. call rhodes within reach.
--- NOTE | 2020-01-06 08:04 | Progress Note ---
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 The patient is currently has no bleeding. No chest pain. No shortness of breath. Positive for what looks like sleep apnea like syndrome. The patient has morbid obesity and pain is controlled at this time. OBJECTIVE: VITAL SIGNS: Temperature is 96.5, blood pressure is 112/49, pulse oximetry of 100% on 2 L of oxygen. HEENT: Normocephalic. The patient is morbidly obese. NECK: He has large neck. CVS: S1 and S2 distant, irregular. ABDOMEN: Slight tenderness in the left lower quadrant. EXTREMITIES: No clubbing. No cyanosis. Lymphedema present. MEDICATIONS: Currently on Lasix 40 mg twice a day, terazosin for his benign prostatic hypertrophy, metolazone 5 mg daily, Astelin, pantoprazole, and tramadol. LABORATORY VALUES: From yesterday, hemoglobin stable at 8. Chemistry showed a BUN of 28 and creatinine of 1.27 today. MICROBIOLOGY: None done. ASSESSMENT: Mr. Walter Adhikari is with: 1. High-grade dysplasia of the rectosigmoid. I did talk to Dr. Duque, possible colonoscopy and possible removal of the tumor with the scope. 2. Morbid obesity. 3. Congestive heart failure. 4. Atrial fibrillation. 5. Coronary artery disease, status post coronary artery bypass graft. PLAN: Continue with IV Lasix. The patient is high risk for surgery. Agree with endoscopic removal of the tumor, and we will continue monitor the patient. Further recommendation per clinical course. MD ANDREW Varma/MODL /[id number]
[2020-01-06] MEDS: CITRATE OF MAGNESIA 300ML BOTTLE PO SCH ×2 (08:45→09:50)
[2020-01-06] MEDS: PANTOPRAZOLE 40 MG 10ML VIAL IV SCH (08:49)
[2020-01-06] MEDS: FUROSEMIDE INJ 10 MG/ML 4 ML VIAL IV SCH ×2 (08:49→20:31)
[2020-01-06] MEDS: IRON-VITAMIN-MINERAL CAPSULE PO SCH (08:50)
[2020-01-06] MEDS: MECOBALAMIN PO SCH (08:50)
[2020-01-06] MEDS: POTASSIUM CHLORIDE 20 MEQ TAB CR PO SCH ×2 (08:51→16:12)
[2020-01-06] MEDS: TERAZOSIN HCL 5 MG CAP PO SCH (08:51)
[2020-01-06] MEDS: NYSTATIN 15 GM POWDER UD BTL TOP SCH (08:51)
[2020-01-06] MEDS: METOLAZONE 5 MG TAB PO SCH (08:51)
[2020-01-06] MEDS: MAGNESIUM OXIDE 400 MG TAB PO SCH (08:51)
[2020-01-06] MEDS: AZELASTINE HCL 137 MCG NASAL SPRAY NS SCH (09:00)
[2020-01-07] VITALS (11 sets, daily range): BP systolic 122–152; BP diastolic 57–74
[2020-01-07 05:33] LABS: BASOPHILS # (AUTO) 0.1 (0.0-0.1); EOSINOPHILS # (AUTO) 0.4 (0.0-0.4); EOSINOPHILS % 6.2 % (0.0-6.0); HEMATOCRIT 26.8 % (38.2-49.6); LYMPHOCYTES # (AUTO) 2.1 (1.0-3.2); LYMPHOCYTES % 30.1 % (18.0-39.1); MEAN CORPUSCULAR HEMOGLOBIN 31.6 pg (28-32); MEAN CORPUSCULAR HGB CONC 29.9 g/dL (31-35); MEAN CORPUSCULAR VOLUME 105.9 fL (81-99); MONOCYTES # (AUTO) 0.7 (0.2-0.8); MONOCYTES % 9.5 % (4.4-11.3); NEUTROPHILS # (AUTO) 3.8 (2.1-6.9); NEUTROPHILS % 53.1 % (38.7-80.0); PLATELET COUNT 198 x10e3/uL (140-360); RED BLOOD COUNT 2.53 x10e6/uL (4.3-5.7); RED CELL DISTRIBUTION WIDTH 16.9 % (11.7-14.4)
[2020-01-07 06:04] LABS: ANION GAP 10.3 mmol/L (8-16); CALCIUM 8.5 mg/dL (8.4-10.2); CREATININE, SERUM 1.17 mg/dL (0.72-1.25); POTASSIUM 3.3 mmol/L (3.5-5.1)
--- NOTE | 2020-01-07 07:58 | Progress Note ---
DATE: SUBJECTIVE: The patient is an 84-year-old gentleman, who comes with rectal bleeding. The patient has been seen by Dr. Duque, who scheduled for endoscopic surgery today. Colonoscopy will be done and hopeful resection of the high-grade dysplasia will be done through endoscopy. No chest pain. No shortness of breath. No nausea, vomiting, or diarrhea. The patient is at his baseline. OBJECTIVE: VITAL SIGNS: Temperature is 97.6, pulse of 59, respirations of 20, blood pressure is 127/60, pulse oximetry of 98%. HEENT: Normocephalic and atraumatic. The patient is morbidly obese. CVS: S1 and S2 distant. Irregular. ABDOMEN: Slightly tender in the epigastric area and also in the left lower quadrant. EXTREMITIES: No clubbing. No cyanosis. Positive for lymphedema and edema. LABORATORY VALUES: Today's white count is 7, hemoglobin of 8, and hematocrit 26.8, which has been stable. Sodium 145, potassium 3.3, BUN of 25, creatinine of 1.17, which is corrected. ASSESSMENT: Mr. Walter Adhikari with: 1. High-grade dysplasia of the rectosigmoid. The patient will be having endoscopic surgery today. 2. Morbid obesity. 3. Atrial fibrillation. 4. Congestive heart failure. 5. History of coronary artery disease. PLAN: Again same, endoscopy. The patient's acute renal failure has rectified. Continue to monitor the patient after surgery. Further recommendation per clinical course and discussed case with Dr. Олег Duque. MD ANDREW Varma/MARYL /[id number]
[2020-01-07] MEDS: FUROSEMIDE INJ 10 MG/ML 4 ML VIAL IV SCH ×2 (08:01→09:13)
[2020-01-07] MEDS: POTASSIUM CHLORIDE 20 MEQ TAB CR PO SCH ×2 (09:00→16:50)
[2020-01-07] MEDS: TERAZOSIN HCL 5 MG CAP PO SCH (09:00)
[2020-01-07] MEDS: MECOBALAMIN PO SCH (09:00)
[2020-01-07] MEDS: MAGNESIUM OXIDE 400 MG TAB PO SCH ×2 (09:00→16:51)
[2020-01-07] MEDS: IRON-VITAMIN-MINERAL CAPSULE PO SCH ×2 (09:00→16:51)
[2020-01-07] MEDS: METOLAZONE 5 MG TAB PO SCH (09:00)
[2020-01-07] MEDS: NYSTATIN 15 GM POWDER UD BTL TOP SCH (09:13)
[2020-01-07] MEDS: AZELASTINE HCL 137 MCG NASAL SPRAY NS SCH (09:14)
[2020-01-07] MEDS: PANTOPRAZOLE 40 MG 10ML VIAL IV SCH (09:14)
[2020-01-07] MEDS ORDERED: BUPIVACAINE 0.5%/EPI 30 ML SDV INJ ONE (10:14)
[2020-01-07] MEDS ORDERED: LIDOCAINE HCL 1% LOCAL INJ 20 ML VIAL ONE (10:14)
[2020-01-07] MEDS ORDERED: LIDOCAINE HCL 2% 30 ML TUBE ONE (10:14)
--- NOTE | 2020-01-07 11:57 | NUR ---
BACK FROM COLONOSCOPY. ALERT AND DENIES PAIN. QUEVEDO TO DRAINAGE. IVF ON FROM SURGERY.
[2020-01-07] MEDS: CEFOXITIN 1GM/ D5W 50ML 50 ML IV SCH ×2 (12:00→16:55)
--- NOTE | 2020-01-07 18:43 | NUR ---
STABLE POST PROCEDURE, STATES HE LIKES THE BROTH BECAUSE HE HAS HAS IT SO MANY TIMES ITS GROWING ON HIM AND THEN LAUGHS. NO RECTAL BLEEDING NOTED.
[2020-01-07] MEDS ORDERED: CEFOXITIN SOD 1 GM VIAL ONE (18:54)
[2020-01-07] MEDS ORDERED: LIDOCAINE HCL 2% LOCAL INJ 5 ML SDV VIAL INJ ONE (18:54)
[2020-01-07] MEDS ORDERED: PROPOFOL IV EMULSION 10 MG/ML 20 ML VIAL ONE (18:54)
[2020-01-08] VITALS: BP 134/61
[2020-01-08] MEDS: CEFOXITIN 1GM/ D5W 50ML 50 ML IV SCH ×4 (01:07→18:19)
[2020-01-08 05:59] LABS: BASOPHILS % 0.5 % (0.0-1.0); EOSINOPHILS # (AUTO) 0.4 (0.0-0.4); EOSINOPHILS % 5.4 % (0.0-6.0); HEMATOCRIT 26.1 % (38.2-49.6); LYMPHOCYTES # (AUTO) 1.3 (1.0-3.2); MEAN CORPUSCULAR HEMOGLOBIN 31.9 pg (28-32); MEAN CORPUSCULAR HGB CONC 30.7 g/dL (31-35); MONOCYTES # (AUTO) 0.5 (0.2-0.8); MONOCYTES % 6.9 % (4.4-11.3); NEUTROPHILS # (AUTO) 4.5 (2.1-6.9); PLATELET COUNT 189 x10e3/uL (140-360); RED BLOOD COUNT 2.51 x10e6/uL (4.3-5.7); RED CELL DISTRIBUTION WIDTH 16.3 % (11.7-14.4)
[2020-01-08 06:22] LABS: ANION GAP 7.5 mmol/L (8-16); BLOOD UREA NITROGEN 28 mg/dL (7-26); BUN/CREATININE RATIO 24 (6-25); CALCIUM 8.2 mg/dL (8.4-10.2); CARBON DIOXIDE 37 mmol/L (22-29); CHLORIDE 103 mmol/L (98-107); CREATININE, SERUM 1.15 mg/dL (0.72-1.25); EST GLOMERULAR FILTRATION RATE > 60 ML/MIN (60-); GLUCOSE 79 mg/dL (74-118); POTASSIUM 3.5 mmol/L (3.5-5.1); SODIUM 144 mmol/L (136-145)
[2020-01-08] MEDS ORDERED: SODIUM CHLORIDE 0.9% 250ML 250 ML ONE (07:57)
[2020-01-08 08:02] VITALS: BP 133/62
[2020-01-08 08:23] VITALS: BP 133/62
--- NOTE | 2020-01-08 08:27 | Progress Note ---
DATE: SUBJECTIVE: The patient is an 84-year-old gentleman. The patient is here for rectal bleeding. The patient underwent a surgery yesterday, was able to resect the high-grade dysplastic adenoma from the rectosigmoid, Dr. Jah Duque is completing this. Currently, the patient is feeling better. No chest pain. No shortness of breath. No nausea, no vomiting. OBJECTIVE: VITAL SIGNS: Temperature is 97.8, pulse of 62, respirations of 22, blood pressure is 134/61. HEENT: Normocephalic and atraumatic. Morbidly obese. CVS: S1 and S2 distant. Irregular. ABDOMEN: Nontender and nondistended. EXTREMITIES: No clubbing, no cyanosis. Positive edema. LABORATORY VALUES: Hemoglobin of 8.0 stable, hematocrit 26.2. Chemistries; 144, potassium 3.5. ASSESSMENT: Mr. Walter Adhikari with: 1. High-grade dysplasia with rectosigmoid, status post endoscopic resection. 2. Morbid obesity. 3. Atrial fibrillation. 4. Congestive heart failure. 5. History of coronary artery disease. PLAN: Continue to monitor the patient's CBC. Disposition, discharge in 1 to 2 days depending on the progression and if he does have rectal bleeding. MD CARLTON VarmaJ/MODL /[id number]
[2020-01-08] MEDS: PANTOPRAZOLE 40 MG 10ML VIAL IV SCH (08:29)
[2020-01-08] MEDS: FUROSEMIDE INJ 10 MG/ML 4 ML VIAL IV SCH (08:29)
[2020-01-08] MEDS: METOLAZONE 5 MG TAB PO SCH (08:33)
[2020-01-08] MEDS: TERAZOSIN HCL 5 MG CAP PO SCH (08:33)
[2020-01-08] MEDS: POTASSIUM CHLORIDE 20 MEQ TAB CR PO SCH ×2 (08:33→17:14)
[2020-01-08] MEDS: NYSTATIN 15 GM POWDER UD BTL TOP SCH (08:33)
[2020-01-08] MEDS: AZELASTINE HCL 137 MCG NASAL SPRAY NS SCH (08:34)
[2020-01-08] MEDS: MECOBALAMIN PO SCH (08:35)
[2020-01-08 12:11] VITALS: BP 157/112
[2020-01-08 16:31] VITALS: BP 128/60
[2020-01-08] MEDS ORDERED: FUROSEMIDE 40 MG TAB PO SCH (18:00)
[2020-01-09] MEDS ORDERED: LISINOPRIL 20 MG TAB PO SCH (09:00)
[2020-01-09] MEDS ORDERED: DOCUSATE SODIUM 100 MG CAP PO SCH (09:00)
[2020-01-09] MEDS ORDERED: RIVAROXABAN 20 MG TABLET PO SCH (09:00)
== END 2020-01-08 18:34 | disposition home or self-care (01) | DRG 394 ==
LOC: ER 08:47 → ERHOLD 10:19 → MED/SURG 11:40 → OBSVTOIN 01-03 08:22
PROVIDERS: ADMIT Family Medicine; ATTEND Family Medicine
PROC: 0DBP8ZZ Excision of Rectum, Via Natural or Artificial Opening Endoscopic (ICD-10-PCS; principal; 2020-01-07 10:00)
DX: D12.7 Benign neoplasm of rectosigmoid junction (principal); I48.20 Chronic atrial fibrillation, unspecified; Z68.42 Body mass index [BMI] 45.0-49.9, adult; I13.0 Hypertensive heart and chronic kidney disease with heart failure and stage 1 through stage 4 chronic kidney disease, or unspecified chronic kidney disease; I50.42 Chronic combined systolic (congestive) and diastolic (congestive) heart failure; N17.9 Acute kidney failure, unspecified; I25.10 Atherosclerotic heart disease of native coronary artery without angina pectoris; Z95.1 Presence of aortocoronary bypass graft; E66.01 Morbid (severe) obesity due to excess calories; N18.3 Chronic kidney disease, stage 3 (moderate); Z88.1 Allergy status to other antibiotic agents; Z79.01 Long term (current) use of anticoagulants
CPT/HCPCS: 36415; 45378; 45385; 71045; 80048; 80053; 82550; 82553; 83880; 84484; 85014; 85018; 85025; 85610; 86850; 86900; 86920; 88305; 93005; 97139; 99251; 99284; G0378; J0694; J1940; J2001; J7030; J7050

== ENCOUNTER 2020-07-13 08:09 | Inpatient (IN) | payer MEDICARE ==
[~2020-07-13] VITALS: Ht 172.7 cm; Wt 140.6 kg
[~2020-07-13 08:09] MED LIST changes: +NYSTATIN1 EAC2 TOP; +TERAZOSIN HCL5 MG PO; +XARELTO20 MG PO
[2020-07-13 09:00] LABS: BASOPHILS # (AUTO) 0.1 (0.0-0.1); BASOPHILS % 1.1 % (0.0-1.0); EOSINOPHILS # (AUTO) 0.2 (0.0-0.4); EOSINOPHILS % 2.4 % (0.0-6.0); HEMATOCRIT 38.2 % (38.2-49.6); HEMOGLOBIN 12.8 g/dL (14.0-18.0); LYMPHOCYTES # (AUTO) 2.1 (1.0-3.2); LYMPHOCYTES % 27.5 % (18.0-39.1); MEAN CORPUSCULAR HEMOGLOBIN 32.2 pg (28-32); MEAN CORPUSCULAR HGB CONC 33.5 g/dL (31-35); MEAN CORPUSCULAR VOLUME 96.2 fL (81-99); MONOCYTES # (AUTO) 0.6 (0.2-0.8); MONOCYTES % 8.5 % (4.4-11.3); NEUTROPHILS # (AUTO) 4.5 (2.1-6.9); NEUTROPHILS % 60.2 % (38.7-80.0); PLATELET COUNT 239 x10e3/uL (140-360); RED BLOOD COUNT 3.97 x10e6/uL (4.3-5.7); RED CELL DISTRIBUTION WIDTH 17.8 % (11.7-14.4)
[2020-07-13 09:16] LABS: BILIRUBIN,URINE NEGATIVE (NEGATIVE); CLARITY,URINE CLEAR (CLEAR); COLOR,URINE YELLOW (YELLOW); KETONES,URINE NEGATIVE (NEGATIVE); LEUKOCYTE ESTERASE ,URINE NEGATIVE (NEGATIVE); NITRITE,URINE NEGATIVE (NEGATIVE); PROTEIN,URINE DIPSTICK NEGATIVE (NEGATIVE); URINE UROBILINOGEN 0.2 mg/dL (0.2 - 1)
[2020-07-13 09:25] LABS: BACTERIA,URINE RARE /HPF; EPITHELIAL CELLS,URINE RARE /LPF; RBC,URINE 0-5 /HPF (0-5); WBC,URINE (MAN) 0-5 /HPF (0-5)
[2020-07-13 09:28] LABS: INR 1.09; PROTHROMBIN TIME 14.7 seconds (11.9-14.5)
[2020-07-13 09:29] LABS: PARTIAL THROMBOPLASTIN TIME 32.5 seconds (23.8-35.5)
[2020-07-13] MEDS: ENOXAPARIN SODIUM INJ 100 MG/ML SYR SC SCH ×2 (10:59→22:50)
[2020-07-13] MEDS ORDERED: ONDANSETRON HCL INJ 2MG/ML 2ML 2 MG/ML VIAL IV PRN (11:15)
[2020-07-13 11:32] LABS: ALANINE AMINOTRANSFERASE 26 IU/L (0-55); ALBUMIN 2.1 g/dL (3.5-5.0); ALBUMIN/GLOBULIN RATIO 0.5 (0.8-2.0); ALKALINE PHOSPHATASE 249 IU/L (40-150); ANION GAP 14.2 mmol/L (8-16); BLOOD UREA NITROGEN 33 mg/dL (7-26); BUN/CREATININE RATIO 30 (6-25); CALCIUM 8.5 mg/dL (8.4-10.2); CARBON DIOXIDE 29 mmol/L (22-29); CHLORIDE 104 mmol/L (98-107); CREATINE KINASE 48 IU/L (30-200); CREATININE, SERUM 1.11 mg/dL (0.72-1.25); EST GLOMERULAR FILTRATION RATE > 60 ML/MIN (60-); GLUCOSE 89 mg/dL (74-118); MAGNESIUM 1.5 MG/DL (1.3-2.1); POTASSIUM 3.2 mmol/L (3.5-5.1); SODIUM 144 mmol/L (136-145)
[2020-07-13] MEDS: FAMOTIDINE 20 MG/2 ML VIAL IV SCH (12:14)
[2020-07-13 16:04] VITALS: BP 156/70
[2020-07-13 16:23] VITALS: BP 156/70
[2020-07-13] MEDS ORDERED: ACETAMINOPHEN325 M1 PO (16:57)
[2020-07-13] MEDS ORDERED: ALLEGRA ALLERG180 MG PO (16:57)
[2020-07-13] MEDS ORDERED: FERROUS SULFAT325 MG PO (16:57)
[2020-07-13] MEDS ORDERED: POTASSIUM CHLORIDE 20MEQ/100ML 100 ML IV ONE (18:00)
[2020-07-13] MEDS ORDERED: FUROSEMIDE INJ 10 MG/ML 2 ML VIAL IV NR (18:00)
[2020-07-13] MEDS: CEFAZOLIN SOD 1 GM/NS 50ML 50 ML IV SCH (18:10)
[2020-07-13] MEDS ORDERED: SODIUM CHLORIDE 0.9% 250ML 250 ML ONE (18:16)
[2020-07-13] MEDS: LACTULOSE SYRUP 20 GM/30 ML UDC PO PRN (18:30)
[2020-07-13 19:02] LABS: CREATINE KINASE MB 4.3 ng/mL (0-5.0)
[2020-07-13 20:40] VITALS: BP 149/73
[2020-07-13 20:41] VITALS: BP 149/73
[2020-07-14] VITALS (9 sets, daily range): BP systolic 146–183; BP diastolic 68–91
[2020-07-14] MEDS: FAMOTIDINE 20 MG/2 ML VIAL IV SCH ×3 (00:04→22:59)
[2020-07-14 05:14] LABS: BASOPHILS # (AUTO) 0.1 (0.0-0.1); BASOPHILS % 1.3 % (0.0-1.0); EOSINOPHILS # (AUTO) 0.1 (0.0-0.4); EOSINOPHILS % 2.2 % (0.0-6.0); HEMATOCRIT 35.8 % (38.2-49.6); HEMOGLOBIN 11.7 g/dL (14.0-18.0); LYMPHOCYTES # (AUTO) 1.6 (1.0-3.2); LYMPHOCYTES % 25.7 % (18.0-39.1); MEAN CORPUSCULAR HEMOGLOBIN 31.5 pg (28-32); MEAN CORPUSCULAR HGB CONC 32.7 g/dL (31-35); MEAN CORPUSCULAR VOLUME 96.5 fL (81-99); MONOCYTES # (AUTO) 0.6 (0.2-0.8); NEUTROPHILS # (AUTO) 3.8 (2.1-6.9); NEUTROPHILS % 60.3 % (38.7-80.0); PLATELET COUNT 223 x10e3/uL (140-360); RED BLOOD COUNT 3.71 x10e6/uL (4.3-5.7); RED CELL DISTRIBUTION WIDTH 17.7 % (11.7-14.4)
[2020-07-14 06:08] LABS: ALANINE AMINOTRANSFERASE 24 IU/L (0-55); ALBUMIN 1.9 g/dL (3.5-5.0); ALBUMIN/GLOBULIN RATIO 0.4 (0.8-2.0); ALKALINE PHOSPHATASE 197 IU/L (40-150); ANION GAP 13.3 mmol/L (8-16); BLOOD UREA NITROGEN 31 mg/dL (7-26); BUN/CREATININE RATIO 29 (6-25); CALCIUM 8.5 mg/dL (8.4-10.2); CARBON DIOXIDE 28 mmol/L (22-29); CHLORIDE 106 mmol/L (98-107); CHOL/HDL RATIO 6.1 (3.9-4.7); CHOLESTEROL 188 MD/DL (0-199); CREATININE, SERUM 1.07 mg/dL (0.72-1.25); EST GLOMERULAR FILTRATION RATE > 60 ML/MIN (60-); GLUCOSE 81 mg/dL (74-118); HDL CHOLESTEROL 31 MG/DL (40-60); LDL CHOLESTEROL 138 MG/DL (60-130); POTASSIUM 3.3 mmol/L (3.5-5.1); SODIUM 144 mmol/L (136-145); TRIGLYCERIDES 96 MG/DL (0-149)
[2020-07-14] MEDS: CEFAZOLIN SOD 1 GM/NS 50ML 50 ML IV SCH ×2 (06:09→17:00)
[2020-07-14 06:24] LABS: CREATINE KINASE MB 4.5 ng/mL (0-5.0)
[2020-07-14] MEDS: POTASSIUM CHLORIDE 20 MEQ TAB CR PO SCH ×2 (08:41→17:00)
[2020-07-14] MEDS: TERAZOSIN HCL 5 MG CAP PO SCH (08:41)
[2020-07-14] MEDS: FUROSEMIDE 40 MG TAB PO SCH ×2 (08:42→17:00)
[2020-07-14] MEDS: METOLAZONE 5 MG TAB PO SCH (08:42)
[2020-07-14] MEDS: ENOXAPARIN SODIUM INJ 100 MG/ML SYR SC SCH ×2 (10:05→22:59)
[2020-07-14] MEDS: LACTULOSE SYRUP 20 GM/30 ML UDC PO PRN (17:32)
[2020-07-14] MEDS: ACETAMINOPHEN 325 MG TAB PO PRN (20:40)
[2020-07-15] VITALS (7 sets, daily range): BP systolic 135–184; BP diastolic 66–85
[2020-07-15] MEDS: CEFAZOLIN SOD 1 GM/NS 50ML 50 ML IV SCH ×2 (06:27→17:26)
[2020-07-15] MEDS: FUROSEMIDE 40 MG TAB PO SCH ×2 (08:46→17:26)
[2020-07-15] MEDS: METOLAZONE 5 MG TAB PO SCH (08:46)
[2020-07-15] MEDS: TERAZOSIN HCL 5 MG CAP PO SCH (08:46)
[2020-07-15] MEDS: ACETAMINOPHEN 325 MG TAB PO PRN (09:22)
[2020-07-15] MEDS: POTASSIUM CHLORIDE 20 MEQ TAB CR PO SCH ×2 (10:45→17:26)
[2020-07-15] MEDS: ENOXAPARIN SODIUM INJ 100 MG/ML SYR SC SCH ×2 (10:46→23:23)
[2020-07-15] MEDS: FAMOTIDINE 20 MG/2 ML VIAL IV SCH ×2 (10:47→23:23)
[2020-07-15] MEDS ORDERED: ONDANSETRON HCL 4 MG ORAL DISINTEGRATING TAB PO PRN (14:15)
[2020-07-16] VITALS: BP 164/68
[2020-07-16 04:00] VITALS: BP 138/76
[2020-07-16] MEDS ORDERED: SODIUM CHLORIDE 0.9% 100 ML ONE (05:44)
[2020-07-16] MEDS: CEFAZOLIN SOD 1 GM/NS 50ML 50 ML IV SCH (05:56)
[2020-07-16 06:42] LABS: BASOPHILS # (AUTO) 0.1 (0.0-0.1); BASOPHILS % 1.4 % (0.0-1.0); EOSINOPHILS # (AUTO) 0.3 (0.0-0.4); EOSINOPHILS % 4.7 % (0.0-6.0); HEMATOCRIT 37.5 % (38.2-49.6); LYMPHOCYTES # (AUTO) 1.7 (1.0-3.2); LYMPHOCYTES % 24.2 % (18.0-39.1); MONOCYTES # (AUTO) 0.9 (0.2-0.8); MONOCYTES % 12.2 % (4.4-11.3); NEUTROPHILS % 57.2 % (38.7-80.0); PLATELET COUNT 200 x10e3/uL (140-360); RED BLOOD COUNT 3.75 x10e6/uL (4.3-5.7); RED CELL DISTRIBUTION WIDTH 17.2 % (11.7-14.4)
[2020-07-16 06:55] LABS: ANION GAP 12.5 mmol/L (8-16); CALCIUM 8.4 mg/dL (8.4-10.2); CREATININE, SERUM 1.25 mg/dL (0.72-1.25); POTASSIUM 3.5 mmol/L (3.5-5.1)
[2020-07-16] MEDS: TERAZOSIN HCL 5 MG CAP PO SCH (08:26)
[2020-07-16] MEDS: METOLAZONE 5 MG TAB PO SCH (08:26)
[2020-07-16] MEDS: POTASSIUM CHLORIDE 20 MEQ TAB CR PO SCH (08:26)
[2020-07-16] MEDS: FUROSEMIDE 40 MG TAB PO SCH (08:26)
[2020-07-16 08:30] VITALS: BP 132/57
[2020-07-16 09:00] VITALS: BP 132/57
[2020-07-16] MEDS: ENOXAPARIN SODIUM INJ 100 MG/ML SYR SC SCH (11:09)
[2020-07-16 12:14] VITALS: BP 143/65
[2020-07-16] MEDS: FAMOTIDINE 20 MG/2 ML VIAL IV SCH (12:47)
[2020-07-16] MEDS ORDERED: RIVAROXABAN 20 MG TABLET PO SCH (14:15)
[2020-07-16 16:30] VITALS: BP 131/73
== END 2020-07-16 17:00 | disposition home or self-care (01) | DRG 291 ==
LOC: ER 08:30 → ERHOLD 11:08 → MED/SURG 16:10
PROVIDERS: ADMIT Family Medicine; ATTEND Family Medicine
DX: I11.0 Hypertensive heart disease with heart failure (principal); G93.41 Metabolic encephalopathy; F03.91 Unspecified dementia, unspecified severity, with behavioral disturbance; Z68.42 Body mass index [BMI] 45.0-49.9, adult; L03.115 Cellulitis of right lower limb; F05 Delirium due to known physiological condition; I50.9 Heart failure, unspecified; I48.91 Unspecified atrial fibrillation; E78.5 Hyperlipidemia, unspecified; I25.10 Atherosclerotic heart disease of native coronary artery without angina pectoris; Z79.01 Long term (current) use of anticoagulants; D50.9 Iron deficiency anemia, unspecified; I89.0 Lymphedema, not elsewhere classified; G89.29 Other chronic pain; E66.01 Morbid (severe) obesity due to excess calories; F03.90 Unspecified dementia, unspecified severity, without behavioral disturbance, psychotic disturbance, mood disturbance, and anxiety; G47.33 Obstructive sleep apnea (adult) (pediatric); K72.90 Hepatic failure, unspecified without coma; G47.30 Sleep apnea, unspecified
CPT/HCPCS: 36415; 70450; 71045; 76705; 80048; 80053; 80061; 81001; 82140; 82550; 82553; 83735; 83880; 84443; 84484; 85025; 85610; 85730; 87040; 87071; 87086; 87205; 93005; 93306; 93880; 99284; J0690; J1650; J1940; J3480; J7050; U0002